=== PATIENT | female | born 1970 ===

== ENCOUNTER 2016-08-06 13:54 | Emergency (ER) | payer MEDICAID ==
[2016-08-06 13:55] VITALS: BMI 23.3
[2016-08-06 15:01] VITALS: PULSE 62; RESP 18; TEMP 98
[2016-08-06 15:02] VITALS: O2SAT 99
--- NOTE | 2016-08-06 15:02 | C.PDOC ---
History Of Present Illness 46 y/o female presents to the ED with complains of lightheadedness and elevated blood pressure today. Pt usually takes lisinopril daily, but states she ran out 2 weeks ago. Pt denies chest pain, SOB, visual changes, extremity weakness or numbness, slurred speech or any other complaints. Time Seen by Provider: 08/06/16 14:06 Chief Complaint (Nursing): Dizziness/Lightheaded History Per: Patient History/Exam Limitations: no limitations Onset/Duration Of Symptoms: Hrs Current Symptoms Are (Timing): Still Present Fall Associated With With Symptoms: No Severity: Mild Recent travel outside of the [place]: No Past Medical History Reviewed: Historical Data, Nursing Documentation, Vital Signs Vital Signs: Last Vital Signs Temp 98.0 F 08/06/16 15:01 Pulse 62 08/06/16 15:01 Resp 18 08/06/16 15:01 BP 148/88 08/06/16 15:01 Pulse Ox 99 08/06/16 15:02 - Medical History PMH: Anxiety, Bipolar Disorder, Depression, Fractures (hand and foot fx), HTN, Hypercholesterolemia - [facility] Procedures APPLICATION OF SPLINT (10/06/14) ESOPHAGOGASTRODUODENOSCOPY [EGD] W/CLOSED BIOPSY (10/09/14) GROUP PSYCHOTHERAPY (05/02/15) INDIVIDUAL PSYCHOTHERAPY, SUPPORTIVE (05/02/15) INJECT/INFUSE NEC (08/18/13) INTRODUCE REGIONAL ANESTH IN PERIPH NRV, PLEXI, PERC (06/27/15) OTHER CAST APPLICATION (02/14/14) REATTACHMENT OF LEFT SHOULDER TENDON, OPEN APPROACH (06/27/15) REMOV EXT IMMOBILIZATION (02/14/14) REPAIR LEFT KNEE JOINT, OPEN APPROACH (06/27/15) REPOSITION LEFT HUMERAL HEAD WITH INT FIX, OPEN APPROACH (06/27/15) REPOSITION LEFT TIBIA WITH INT FIX, OPEN APPROACH (06/27/15) SUPPLEMENT L SHOULDER TENDON WITH SYNTH SUB, OPEN APPROACH (06/27/15) TRANSFUSE NONAUT RED BLOOD CELLS IN PERIPH VEIN, PERC (06/27/15) Family History: States: Stroke, CAD, Hypertension - Social History Hx Tobacco Use: Yes (light smoker) Hx Alcohol Use: No Hx Substance Use: Yes - Immunization History Hx Tetanus Toxoid Vaccination: No Hx Influenza Vaccination: No Hx Pneumococcal Vaccination: Yes (2014) Review Of Systems Except As Marked, All Systems Reviewed And Found Negative. Constitutional: Negative for: Fever Eyes: Negative for: Vision Change Cardiovascular: Negative for: Chest Pain Respiratory: Negative for: Shortness of Breath Neurological: Positive for: Dizziness. Negative for: Weakness, Numbness, Change in Speech Physical Exam - Physical Exam Appears: Non-toxic, No Acute Distress Skin: Warm, Dry, No Rash Head: Atraumatic, Normacephalic Nose: Normal Neck: Normal ROM, Supple Chest: Symmetrical Cardiovascular: Rhythm Regular, No Murmur Respiratory: Normal Breath Sounds, No Rales, No Rhonchi, No Wheezing Gastrointestinal/Abdominal: Soft, No Tenderness Extremity: No Pedal Edema Extremity: Bilateral: Atraumatic Neurological/Psych: Oriented x3 ED Course And Treatment O2 Sat by Pulse Oximetry: 99 (on room air) Pulse Ox Interpretation: Normal Progress Note: Plan: lisinopril, BGL. Blood pressure improved, discharged with prescription of Lisinopril. Disposition Counseled Patient/Family Regarding: Studies Performed, Diagnosis, Need For Followup, Rx Given - Disposition Referrals: [facility] at [facility] [Outside] Disposition Time: 15:10 Additional Instructions: FOLLOW UP WITH YOUR DOCTOR IN 1-2 DAYS USE MEDICATION FOR HTN EVERY DAY RETURN TO EMERGENCY ROOM IF SYMPTOMS WORSEN Prescriptions: Lisinopril [Prinivil] 5 mg PO DAILY #30 tablet Instructions: Hypertension (ED) Print Language: ANGUILLAN - POA Present On Arrival: None - Clinical Impression Clinical Impression: Hypertension, Noncompliance with medication regimen - Scribe Statement The provider has reviewed the documentation as recorded by the Georgina Martinez Provider Attestation: All medical record entries made by the Georgina were at my direction and personally dictated by me. I have reviewed the chart and agree that the record accurately reflects my personal performance of the history, physical exam, medical decision making, and the department course for this patient. I have also personally directed, reviewed, and agree with the discharge instructions and disposition.
[2016-08-06 15:42] VITALS: BP 136/86
== END 2016-08-06 15:20 | disposition home or self-care (01) ==
LOC: C.ER 13:54
DX: I10 Essential (primary) hypertension (principal); Z91.14 Patient's other noncompliance with medication regimen

== ENCOUNTER 2016-08-07 13:33 | Emergency (ER) | payer MEDICAID ==
[2016-08-07 13:33] VITALS: BMI 23.3
[2016-08-07 17:45] VITALS: TEMP 98.3; O2SAT 99
[2016-08-07 18:47] VITALS: BP 156/88; PULSE 70; RESP 20
--- NOTE | 2016-08-07 19:51 | C.PDOC ---
History Of Present Illness A 46 year old female presents to the emergency room with complaints of headaches , dizziness, intermittent palpations, and blurry vision for a few days. Patient notes that her blood pressure happens to be elevated. Patient reports that her blood pressure machine measured her blood pressure as 159/107 with a heart rate of 93 today. Patient states that she was trying to watch television but kept having blurry vision. Patient was here in the emergency room yesterday and was prescribed Lisinopril. Patient has a history of anxiety and took her anxiety medications last night. Patient's physician is Dr. Parisa Hidalgo ([place]). Patient states that she has changed her blood pressure medications and is having trouble with her blood pressure. Patient notes a pain in the center of her chest that is reproducible with palpation. Patient also describes an electrical sensation radiating down her arm. Patient denies any shortness of breath, vomiting, abdominal pain, or any other complaints. Time Seen by Provider: 08/07/16 15:45 Chief Complaint (Nursing): High Blood Pressure History Per: Patient History/Exam Limitations: no limitations Onset/Duration Of Symptoms: Days Current Symptoms Are (Timing): Still Present Associated Symptoms: Chest Pain, Dizziness, Blurred Vision, Headache Severity: Moderate Exacerbating Factor(s): Pos: Recent Change In Medication (Change in blood pressure meds) Recent travel outside of the [place]: No Past Medical History Reviewed: Historical Data, Nursing Documentation, Vital Signs Vital Signs: Last Vital Signs Temp 98.3 F 08/07/16 17:44 Pulse 70 08/07/16 18:46 Resp 20 08/07/16 18:46 BP 156/88 H 08/07/16 18:46 Pulse Ox 99 08/07/16 19:56 - Medical History PMH: Anxiety, Bipolar Disorder, Depression, Fractures (hand and foot fx), HTN, Hypercholesterolemia Denies: Kidney Stones, Chronic Kidney Disease - [facility] Procedures APPLICATION OF SPLINT (10/06/14) ESOPHAGOGASTRODUODENOSCOPY [EGD] W/CLOSED BIOPSY (10/09/14) GROUP PSYCHOTHERAPY (05/02/15) INDIVIDUAL PSYCHOTHERAPY, SUPPORTIVE (05/02/15) INJECT/INFUSE NEC (08/18/13) INTRODUCE REGIONAL ANESTH IN PERIPH NRV, PLEXI, PERC (06/27/15) OTHER CAST APPLICATION (02/14/14) REATTACHMENT OF LEFT SHOULDER TENDON, OPEN APPROACH (06/27/15) REMOV EXT IMMOBILIZATION (02/14/14) REPAIR LEFT KNEE JOINT, OPEN APPROACH (06/27/15) REPOSITION LEFT HUMERAL HEAD WITH INT FIX, OPEN APPROACH (06/27/15) REPOSITION LEFT TIBIA WITH INT FIX, OPEN APPROACH (06/27/15) SUPPLEMENT L SHOULDER TENDON WITH SYNTH SUB, OPEN APPROACH (06/27/15) TRANSFUSE NONAUT RED BLOOD CELLS IN PERIPH VEIN, PERC (06/27/15) Family History: States: Stroke, CAD, Hypertension - Social History Hx Tobacco Use: Yes (light smoker) Hx Alcohol Use: No Hx Substance Use: Yes - Immunization History Hx Tetanus Toxoid Vaccination: No Hx Influenza Vaccination: No Hx Pneumococcal Vaccination: Yes (2013) Review Of Systems Except As Marked, All Systems Reviewed And Found Negative. Constitutional: Positive for: Other (Elevated blood pressure) Eyes: Positive for: Vision Change (Blurry vision) Cardiovascular: Positive for: Chest Pain, Palpitations Respiratory: Negative for: Shortness of Breath Gastrointestinal: Negative for: Vomiting, Abdominal Pain Neurological: Positive for: Headache, Dizziness Physical Exam - Physical Exam Appears: Non-toxic Skin: Normal Color, Warm, Dry Head: Atraumatic, Normacephalic Eye(s): bilateral: Normal Inspection Neck: Normal ROM, Supple Cardiovascular: Rhythm Regular Respiratory: Normal Breath Sounds, No Rales, No Rhonchi, No Wheezing Gastrointestinal/Abdominal: Soft, No Tenderness Extremity: Normal ROM, No Tenderness Neurological/Psych: Oriented x3, Normal Speech ED Course And Treatment ECG: Interpreted By Me ECG Rhythm: Sinus Rhythm Interpretation Of ECG: voltage for LVH Rate From EC O2 Sat by Pulse Oximetry: 99 Progress Note: Patient's blood pressure here in the ER was 148/88 and patient's heart rate was in the 60s. Medical Decision Making Medical Decision Making: BP remained normal in the Ed Pt advised to f/u with her PCP Disposition - Disposition Referrals: Parisa Hidalgo MD [Resident] - Disposition: HOME/ ROUTINE Disposition Time: 20:33 Condition: GOOD Instructions: Anxiety (ED) - Clinical Impression Clinical Impression: Anxiety - Scribe Statement The provider has reviewed the documentation as recorded by the Scribluba Randle All medical record entries made by the Scribe were at my direction and personally dictated by me. I have reviewed the chart and agree that the record accurately reflects my personal performance of the history, physical exam, medical decision making, and the department course for this patient. I have also personally directed, reviewed, and agree with the discharge instructions and disposition.
== END 2016-08-07 20:55 | disposition home or self-care (01) ==
LOC: C.ER 13:33
DX: F41.9 Anxiety disorder, unspecified (principal)

== ENCOUNTER 2016-08-20 12:08 | Observation (INO) | payer MEDICAID ==
[2016-08-20 12:08] VITALS: BMI 23.3
[2016-08-20] MEDS ORDERED: Sodium Chloride 0.9% 1,000 ML IV STA (12:57)
[2016-08-20] MEDS ORDERED: Aluminum Hydroxide/Magnesium Hydroxide Susp (30 mL) PO STA (12:58)
[2016-08-20] MEDS ORDERED: Sodium Chloride 0.9% 1,000 ML ONE (13:19)
[2016-08-20] MEDS ORDERED: Aluminum Hydroxide/Magnesium Hydroxide Susp (30 mL) ONE (13:19)
[2016-08-20 13:49] LABS: CHLORIDE 102 mmol/L (98-107); PARTIAL THROMBOPLASTIN TIME 30 SECONDS (21-34); POTASSIUM 3.8 mmol/L (3.6-5.2); SODIUM 140 mmol/L (132-148)
[2016-08-20 13:50] LABS: BASO # 0.1 K/uL (0.0-0.2); EOS # 0.1 K/uL (0.0-0.7); EOS % 1.7 % (0.0-4.0); HEMATOCRIT 39.7 % (34.0-47.0); LYMPH # 1.9 K/uL (1.0-4.3); LYMPH % 29.5 % (20.0-40.0); MEAN CELL VOLUME 82.6 fL (81.0-99.0); MEAN CORPUSCULAR HEMOGLOBIN 27.9 pg (27.0-31.0); MEAN CORPUSCULAR HGB CONC 33.8 g/dL (33.0-37.0); MEAN PLATELET VOLUME 10.5 fL (7.2-11.7); MONO # 0.3 K/uL (0.0-0.8); MONO % 4.9 % (0.0-10.0); RED CELL DISTRIBUTION WIDTH 15.1 % (11.5-14.5); WHITE BLOOD COUNT 6.6 K/uL (4.8-10.8)
[2016-08-20 13:52] LABS: ALB/GLOB RATIO 1.3 (1.0-2.1); ALKALINE PHOSPHATASE 71 U/L (38-126); ALT/SGPT 33 U/L (9-52); AST/SGOT 25 U/L (14-36); BILIRUBIN,TOTAL 0.9 mg/dL (0.2-1.3); BLOOD UREA NITROGEN 13 mg/dL (7-17); CARBON DIOXIDE 29 mmol/L (22-30); GFR AFRICAN-AMERICAN > 60; GLUCOSE,RANDOM 83 mg/dL (65-105); TOTAL PROTEIN 7.8 g/dL (6.3-8.3)
[2016-08-20 13:53] LABS: CALCIUM 9.2 mg/dl (8.6-10.4)
[2016-08-20 13:56] LABS: RBC URINE < 1 /hpf (0-3); URINE BILIRUBIN NEGATIVE (NEGATIVE); URINE BLOOD 2+ (NEGATIVE); URINE COLOR Straw (YELLOW); URINE GLUCOSE (UA) NORMAL (Normal); URINE KETONE NEGATIVE (NEGATIVE); URINE LEUKOCYTE ESTERASE NEG Leu/uL (Negative); URINE PROTEIN NEGATIVE (NEGATIVE); URINE UROBILINOGEN NORMAL mg/dL (0.2-1.0)
--- NOTE | 2016-08-20 15:36 | C.PDOC ---
History Of Present Illness 46 y/o female presents to the emergency department complaining of burning sensation in her chest and SOB, pain worse with swallowing. She reports that she has been smoking a lot of cigarettes and a lot of marijuana for the last several days. Patient denies any other drug abuse, shortness of breath, fever, or other complaints. Time Seen by Provider: 08/20/16 12:39 Chief Complaint (Nursing): Chest Pain History Per: Patient History/Exam Limitations: no limitations Onset/Duration Of Symptoms: Days, Gradual, Persistent Current Symptoms Are (Timing): Still Present Quality: Burning Recent travel outside of the [place]: No Past Medical History Reviewed: Historical Data, Nursing Documentation, Vital Signs Vital Signs: Last Vital Signs Temp 98.0 F 08/20/16 15:04 Pulse 62 08/20/16 16:45 Resp 18 08/20/16 16:45 BP 129/76 08/20/16 16:45 Pulse Ox 98 08/20/16 17:32 - Medical History PMH: Anxiety, Bipolar Disorder, Depression, Fractures (hand and foot fx), HTN, Hypercholesterolemia Surgical History: No Surg Hx - [facility] Procedures APPLICATION OF SPLINT (10/06/14) ESOPHAGOGASTRODUODENOSCOPY [EGD] W/CLOSED BIOPSY (10/09/14) GROUP PSYCHOTHERAPY (05/02/15) INDIVIDUAL PSYCHOTHERAPY, SUPPORTIVE (05/02/15) INJECT/INFUSE NEC (08/18/13) INTRODUCE REGIONAL ANESTH IN PERIPH NRV, PLEXI, PERC (06/27/15) OTHER CAST APPLICATION (02/14/14) REATTACHMENT OF LEFT SHOULDER TENDON, OPEN APPROACH (06/27/15) REMOV EXT IMMOBILIZATION (02/14/14) REPAIR LEFT KNEE JOINT, OPEN APPROACH (06/27/15) REPOSITION LEFT HUMERAL HEAD WITH INT FIX, OPEN APPROACH (06/27/15) REPOSITION LEFT TIBIA WITH INT FIX, OPEN APPROACH (06/27/15) SUPPLEMENT L SHOULDER TENDON WITH SYNTH SUB, OPEN APPROACH (06/27/15) TRANSFUSE NONAUT RED BLOOD CELLS IN PERIPH VEIN, PERC (06/27/15) Family History: States: Stroke, CAD, Hypertension - Social History Hx Tobacco Use: Yes (light smoker) Hx Alcohol Use: No Hx Substance Use: Yes (marijuana) - Immunization History Hx Tetanus Toxoid Vaccination: No Hx Influenza Vaccination: No Hx Pneumococcal Vaccination: Yes (2013) Review Of Systems Except As Marked, All Systems Reviewed And Found Negative. Constitutional: Negative for: Fever Respiratory: Positive for: Other ("burning" in chest with swallowing). Negative for: Shortness of Breath Physical Exam - Physical Exam Appears: Non-toxic, No Acute Distress, Other (marijuana odor) Skin: Normal Color, Warm, Dry Head: Atraumatic, Normacephalic Eye(s): bilateral: Normal Inspection, PERRL Neck: Normal, Normal ROM Chest: Symmetrical, No Tenderness Cardiovascular: Rhythm Regular Respiratory: Normal Breath Sounds, No Decreased Breath Sounds, No Rales, No Rhonchi, No Wheezing Gastrointestinal/Abdominal: Normal Exam, Soft, No Tenderness Back: Normal Inspection Extremity: Normal ROM, No Swelling Neurological/Psych: Oriented x3, Normal Speech, Normal Cognition ED Course And Treatment - Laboratory Results Result Diagrams: 08/20/16 13:37 08/20/16 13:37 ECG Rhythm: Sinus Rhythm Interpretation Of ECG: LVH, short MO Rate From EC O2 Sat by Pulse Oximetry: 98 (ra) Pulse Ox Interpretation: Normal - Other Rad Chest X-Ray X-Ray: Viewed By Me, Read By Radiologist Interpretation: Accession No. : [id number]. Patient Name / ID : IAN SHAFFER I / [id number]. Exam Date : 08/20/2016 15:26:16 ( Approved ). Study Comment : Sex / Age : F / 46Y. Creator : TAMIR DUFFY MD. Dictator : TAMIR DUFFY MD. Compliance Advisor : Apprentice Machinist Outside : TAMIR DUFFY MD. Approver2 : Report Date : 08/20/2016 17:26:22. My Comment : . HISTORY: pain in the throat after smoking weed. COMPARISON: 07/30/2016. TECHNIQUE: Chest PA and lateral. FINDINGS: LUNGS: The lungs are hyperinflated and there is peribronchial thickening with chronic changes in both lungs. There is no focal consolidation. PLEURA: No significant pleural effusion identified. No pneumothorax apparent. CARDIOVASCULAR: Normal. OSSEOUS STRUCTURES: No significant abnormalities. VISUALIZED UPPER ABDOMEN: Normal. OTHER FINDINGS: None. IMPRESSION: Findings are most compatible with reactive small airway disease/viral/atypical pneumonitis. No lobar pneumonia. Progress Note: EKG, CXR, Blood Work, Urinalysis, and Urine HCG were ordered. Patient treated with Maalox PO, Pepcid IVP, and IV Fluids. Patient accepted to telemetry observation under the care of Dr. Judy Londono. Disposition - Disposition Disposition: HOSPITALIZED Disposition Time: 16:07 Condition: FAIR - Clinical Impression Clinical Impression: Cannabis abuse, Chest pain - PA / AUTOCAD DETAILER / Resident Statement MD/DO has reviewed & agrees with the documentation as recorded. - Scribe Statement The provider has reviewed the documentation as recorded by the Scribe (Misty Dao) All medical record entries made by the Scribe were at my direction and personally dictated by me. I have reviewed the chart and agree that the record accurately reflects my personal performance of the history, physical exam, medical decision making, and the department course for this patient. I have also personally directed, reviewed, and agree with the discharge instructions and disposition. Decision To Admit - Pt Status Changed To: Hospital Disposition Of: Observation - . Bed Request Type: Telemetry Admitting Physician: Judy Londono Patient Diagnosis: Cannabis abuse, Chest pain
--- NOTE | 2016-08-20 17:27 | RAD ---
HISTORY: pain in the throat after smoking weed COMPARISON: 07/30/2016 TECHNIQUE: Chest PA and lateral FINDINGS: LUNGS: The lungs are hyperinflated and there is peribronchial thickening with chronic changes in both lungs. There is no focal consolidation. PLEURA: No significant pleural effusion identified. No pneumothorax apparent. CARDIOVASCULAR: Normal. OSSEOUS STRUCTURES: No significant abnormalities. VISUALIZED UPPER ABDOMEN: Normal. OTHER FINDINGS: None. IMPRESSION: Findings are most compatible with reactive small airway disease/viral/atypical pneumonitis. No lobar pneumonia.
--- NOTE | 2016-08-21 12:37 | CP.PCM.CON ---
History of Present Illness - History of Present Illness History of Present Illness: Middle aged female who was not feeling well after smoking and Marijuana use for some days. Now denies any complaints and promising to stop smoking and Marijuana. from Past Patient History - Infectious Disease Hx of Infectious Diseases: None - Past Medical History & Family History Past Medical History?: Yes - Past Social History Smoking Status: Heavy Smoker > 10 Cigarettes Daily - CARDIAC Hx Hypercholesterolemia: Yes Hx Hypertension: Yes - PULMONARY Hx Respiratory Disorders: (smoker) Other/Comment: SMOKER - NEUROLOGICAL Hx Neurological Disorder: No - HEENT Hx HEENT Problems: No - RENAL Hx Chronic Kidney Disease: No - ENDOCRINE/METABOLIC Hx Endocrine Disorders: No - HEMATOLOGICAL/ONCOLOGICAL Hx Blood Disorders: No - INTEGUMENTARY Hx Dermatological Problems: No - MUSCULOSKELETAL/RHEUMATOLOGICAL Hx Musculoskeletal Disorders: No Hx Falls: No - GASTROINTESTINAL Hx Gastrointestinal Disorders: Yes Hx Diarrhea: Yes - GENITOURINARY/GYNECOLOGICAL Hx Genitourinary Disorders: No - PSYCHIATRIC Hx Anxiety: Yes Hx Bipolar Disorder: Yes Hx Depression: Yes Hx Substance Use: Yes (marijuana) - SURGICAL HISTORY Hx Surgeries: Yes Hx Orthopedic Surgery: Yes - ANESTHESIA Hx Anesthesia: Yes Hx Anesthesia Reactions: No Hx Malignant Hyperthermia: No Meds Allergies/Adverse Reactions: Allergies Allergy/AdvReac Type Severity Reaction Status Date / Time No Known Allergies Allergy Verified 08/07/16 14:29 - Medications Medications: Current Medications Aripiprazole (Abilify) 10 mg PO HS [facility] Last Admin: 08/20/16 23:13 Dose: 10 mg Aspirin (Aspirin Chewable) 81 mg PO DAILY [facility] Last Admin: 08/21/16 10:11 Dose: 81 mg Famotidine (Pepcid) 40 mg PO DAILY [facility] Last Admin: 08/21/16 10:11 Dose: 40 mg Heparin Sodium (Porcine) (Heparin) 5,000 units SC Q12 [facility] Last Admin: 08/21/16 10:11 Dose: 5,000 units Lisinopril (Zestril) 10 mg PO DAILY [facility] Last Admin: 08/21/16 10:10 Dose: 10 mg Paroxetine HCl (Paxil) 10 mg PO DAILY [facility] Last Admin: 08/21/16 10:11 Dose: 10 mg Trazodone HCl (Desyrel) 100 mg PO [facility] Last Admin: 08/20/16 23:12 Dose: 100 mg Trazodone HCl (Desyrel) 50 mg PO [facility] Last Admin: 08/20/16 23:12 Dose: 50 mg Physical Exam - Head Exam Head Exam: NORMOCEPHALIC - Neck Exam Neck exam: Positive for: Normal Inspection - Respiratory Exam Respiratory Exam: NORMAL BREATHING PATTERN - Cardiovascular Exam Cardiovascular Exam: REGULAR RHYTHM - Extremities Exam Extremities exam: Positive for: normal inspection - Neurological Exam Neurological exam: Oriented x3 Results - Vital Signs Recent Vital Signs: Last Vital Signs Temp 98.2 F 08/21/16 07:35 Pulse 64 08/21/16 08:00 Resp 17 08/21/16 07:35 BP 144/84 08/21/16 07:35 Pulse Ox 97 08/21/16 07:35 - Labs Result Diagrams: 08/20/16 13:37 08/20/16 13:37 Labs: Laboratory Results - last 24 hr 08/20/16 08/21/16 21:49 05:58 Total Creatine Kinase 54 47 CK-MB (Mass) 0.56 0.37 Troponin I, Quant < 0.0120 < 0.0120 Assessment & Plan (1) Chest pain Assessment and Plan: Young female with atypical chest pain who has been smoking and using Cannabis. Her work-up is negative and EKG is without any significant abnormalities. Given her age and and low risk profile she may be discharged and further cardiac work- up can be done as out patient. Status: Acute
--- NOTE | 2016-08-21 14:49 | CP.PCM.PN ---
Subjective - Date & Time of Evaluation Date of Evaluation: 08/21/16 Time of Evaluation: 14:41 - Subjective Subjective: House doctor note - PGY-1 I was called to evaluate pt for chest pain. She was admitted with chest pain and sob. Cardiac work up has been negative so far. Pt reports left sided chest pain to me that she is not able to describe well. She states that it started a few minutes ago. Pt was observed to be on the phone, speaking in full sentences , in NAD. Denied any diaphoresis, nausea, vomiting. Vitals were stable with BP ~ 160/90 and HR ~70. Pt saturating well. A repeat EKG, NARENDRA's and cxr were ordered. EKG showed NSR with no st elevations or depressions, no significant change from prior EKGs. Nursing staff to update PCP. Objective - Vital Signs/Intake and Output Vital Signs (last 24 hours): Temp Pulse Resp BP Pulse Ox 98.2 F 75 17 180/109 H 97 08/21/16 07:35 08/21/16 13:29 08/21/16 07:35 08/21/16 13:29 08/21/16 07:35 Intake and Output: 08/21/16 08/21/16 06:59 18:59 Intake Total 240 Balance 240 - Medications Medications: Current Medications Amlodipine Besylate (Norvasc) 10 mg PO DAILY [facility] Aripiprazole (Abilify) 10 mg PO HS [facility] Last Admin: 08/20/16 23:13 Dose: 10 mg Aspirin (Aspirin Chewable) 81 mg PO DAILY [facility] Last Admin: 08/21/16 10:11 Dose: 81 mg Famotidine (Pepcid) 40 mg PO DAILY [facility] Last Admin: 08/21/16 10:11 Dose: 40 mg Heparin Sodium (Porcine) (Heparin) 5,000 units SC Q12 [facility] Last Admin: 08/21/16 10:11 Dose: 5,000 units Lisinopril (Zestril) 10 mg PO DAILY [facility] Last Admin: 08/21/16 10:10 Dose: 10 mg Paroxetine HCl (Paxil) 10 mg PO DAILY [facility] Last Admin: 08/21/16 10:11 Dose: 10 mg Trazodone HCl (Desyrel) 100 mg PO HS [facility] Last Admin: 08/20/16 23:12 Dose: 100 mg Trazodone HCl (Desyrel) 50 mg PO HS [facility] Last Admin: 08/20/16 23:12 Dose: 50 mg - Labs Labs: PT 11.7 SECONDS (9.7-12.2) 08/20/16 13:37 INR 1.0 08/20/16 13:37 APTT 30 SECONDS (21-34) 08/20/16 13:37 - Constitutional Appears: Non-toxic, No Acute Distress - Head Exam Head Exam: ATRAUMATIC, NORMOCEPHALIC - ENT Exam ENT Exam: Mucous Membranes Moist - Respiratory Exam Respiratory Exam: Clear to Ausculation Bilateral, NORMAL BREATHING PATTERN - Cardiovascular Exam Cardiovascular Exam: +S1, +S2 - GI/Abdominal Exam GI & Abdominal Exam: Soft, Normal Bowel Sounds - Neurological Exam Neurological Exam: Alert, Awake - Skin Skin Exam: Dry, Warm
--- NOTE | 2016-08-21 15:01 | RAD ---
PROCEDURE: CHEST RADIOGRAPH, 1 VIEW HISTORY: chest pain COMPARISON: 08/20/2016 FINDINGS: LUNGS: The lungs are clear. There is no focal consolidation. PLEURA: No pneumothorax or pleural fluid seen. CARDIOVASCULAR: Normal. OSSEOUS STRUCTURES: No significant abnormalities. VISUALIZED UPPER ABDOMEN: Normal. OTHER FINDINGS: None. IMPRESSION: No active pulmonary disease.
[2016-08-21 17:09] VITALS: RESP 20
--- NOTE | 2016-08-22 06:30 | CARD ---
APPROVED REPORT EKG Measurement Heart [id number] <Conclusion> Sinus rhythm with short NH Moderate voltage criteria for LVH, may be normal variant Borderline ECG
--- NOTE | 2016-08-22 07:48 | HP ---
CHIEF COMPLAINT: Chest pain, shortness of breath. HISTORY OF PRESENT ILLNESS: The patient is a 46-year-old female came into the Emergency Room Department complaining of burning sensation in her chest, shortness of breath. The pain worsens with swallowing. She reports that she has been smoking a lot of cigarettes and a lot of marijuana for the last several days. The patient denies any drug abuse. No fever, no chills and pain persists, still present at the time of admission. PAST MEDICAL HISTORY: Anxiety, bipolar, depression, fracture of hand and foot, hypertension, hypercholesterolemia, history of EGD with biopsy. FAMILY HISTORY: Stroke, coronary artery disease, hypertension. SOCIAL HISTORY: Tobacco abuse yes, alcohol abuse no. As per patient, substance abuse yes, marijuana. REVIEW OF SYSTEMS: The patient is seen and examined on the bedside in the room. Still complaining about burning sensation. No nausea, vomiting, or diarrhea. No fever, no chills. No hematuria or hematochezia. No shortness of breath. PHYSICAL EXAMINATION: VITAL SIGNS: Temperature 98.2, pulse 75, respiratory rate 18, blood pressure 112/75. HEENT: Head normocephalic, atraumatic. Eyes: PERRLA. Extraocular muscles intact. Conjunctivae clear. Nose patent. NECK: Supple. No carotid bruit, JVD or thyromegaly. CHEST: Bilaterally symmetrical. HEART: S1, S2 positive. LUNGS: Clear to auscultation. ABDOMEN: Soft. Bowel sounds present. No organomegaly. EXTREMITIES: No edema, no cyanosis. NEUROLOGIC: The patient is awake, alert, moving all 4 extremities. No focal deficits. LABORATORY DATA: White blood cells 6.6, hemoglobin 13.4, hematocrit 37.7, and platelets 180. Sodium 140, potassium 3.8, BUN 13, creatinine 0.7. Troponin less than 0.0120 x 3. Urine has blood. Tox screen negative. ASSESSMENT AND PLAN: The patient is a 46-year-old lady came with chest pain. Troponin is negative, has hematuria. Echocardiogram done. Chest x-ray done, seen by Dr. Pat Rasmussen, furniture cleaner. History of marijuana abuse, looks like atypical chest pain as per Dr. Rasmussen. Workup is negative. EKG is without any significant abnormalities. Given her age and low risk profile, she may be discharged and further cardiac workup can be done as outpatient. She is not my private patient. I admitted her when I was personnel officer. Something for rapid heart and these palpitations. The patient is seen Dr. Ladarius Wise. Today, the patient has again chest pain and house doctor, PGY-1, was called. He saw the patient according to that. The patient has chest pain, started a few minutes ago. The patient was observed to be on the phone, speaking in full sentences in no acute distress. Denies any diaphoresis, nausea, vomiting. Vitals are stable. Repeat EKG, and chest x-ray were ordered. No significant change from EKG, We will continue present treatment. Gastrointestinal and deep venous thrombosis prophylaxis. Repeat labs. We will follow up. Judy Londono MD cc: [id number] TT: 08/22/2016 07:48:20 dylon VALLE
[2016-08-22 08:32] LABS: HEMATOCRIT 38.1 % (34.0-47.0); MEAN CELL VOLUME 83.7 fL (81.0-99.0); MEAN CORPUSCULAR HEMOGLOBIN 28.1 pg (27.0-31.0); MEAN CORPUSCULAR HGB CONC 33.6 g/dL (33.0-37.0); MEAN PLATELET VOLUME 10.9 fL (7.2-11.7); RED CELL DISTRIBUTION WIDTH 15.5 % (11.5-14.5)
[2016-08-22 08:41] VITALS: BP 114/74; PULSE 72; TEMP 98.2; O2SAT 98
[2016-08-22 08:47] LABS: CHLORIDE 99 mmol/L (98-107); SODIUM 139 mmol/L (132-148)
[2016-08-22 08:48] LABS: POTASSIUM 3.9 mmol/L (3.6-5.2)
[2016-08-22 08:49] LABS: IRON 133 ug/dL (37-170)
[2016-08-22 08:50] LABS: CHOLESTEROL 165 mg/dL (0-199); GFR AFRICAN-AMERICAN > 60
[2016-08-22 08:51] LABS: BLOOD UREA NITROGEN 12 mg/dL (7-17); CARBON DIOXIDE 28 mmol/L (22-30); GLUCOSE,RANDOM 91 mg/dL (65-105)
[2016-08-22 09:54] LABS: THYROID STIMULATING HORMONE 1.61 mIU/L (0.46-4.68)
[2016-08-22 10:02] LABS: FOLATE 7.4 ng/mL
--- NOTE | 2016-08-23 14:56 | DS ---
CHIEF COMPLAINT: Chest pain, shortness of breath. HISTORY OF PRESENT ILLNESS: The patient is a 46-year-old lady, new for me, came to the Emergency Room Department complaining about chest pain, shortness of breath. The patient was admitted. Cardiology consult called with Dr. Rasmussen. He saw the patient, cleared for discharge. The patient does not have pain and she was feeling better, pain free and advised to do workup as outpatient, follow up with primary care physician and sew out operator as outpatient and follow up for echocardiography and a stress test, and in case pain will come back, come to the hospital or call 911. PAST MEDICAL HISTORY: Anxiety, bipolar, depression, fracture of the hand and foot, hypertension, hypercholesterolemia, history of EGD with biopsy. FAMILY HISTORY: Stroke, coronary artery disease, hypertension. SOCIAL HISTORY: Tobacco abuse yes. Alcohol abuse no. As per patient, substance abuse yes, marijuana. The patient urged to quit marijuana, education done. REVIEW OF SYSTEMS: The patient seen and examined on the bedside, looks comfortable. No more chest pain. No shortness of breath. No nausea, vomiting , diarrhea. Feeling better, wants to go home. PHYSICAL EXAMINATION: VITAL SIGNS: Temperature 98.2, pulse 58, blood pressure 114/74, respiratory rate 20. HEENT: Head normocephalic, atraumatic. Eyes, PERRLA. Extraocular muscles intact. Conjunctivae pink. Eyelids unremarkable. Nose patent. Mucous membranes moist. NECK: Supple. No carotid bruit, no JVD, no thyromegaly. CHEST: Bilaterally symmetrical. HEART: S1, S2 positive. LUNGS: Clear to auscultation. ABDOMEN: Soft. Bowel sounds positive. No organomegaly. EXTREMITIES: No edema, no cyanosis. NEUROLOGIC: The patient is awake, alert, moving all 4 extremities. No focal deficits. MEDICATIONS: Was given in the hospital Abilify, aspirin, heparin for DVT prophylaxis, Norvasc, Paxil, Pepcid for GI prophylaxis, Zestril, Zofran. LABORATORIES: White blood cells 6.0, hemoglobin 12.8, hematocrit 38.1, platelets noted Sodium 139, potassium 3.9, BUN 12, creatinine 0.7, glucose noted iron 133. Troponin less than 0.0120 four times. ASSESSMENT AND PLAN: The patient is a 46-year-old lady, came with chest pain, seen by the sew out operator, Dr. Rasmussen. According to sew out operator, patient has atypical chest pain, who has been smoking and using cannabinoids, cannabis. Her workup is negative and EKG is without any significant abnormalities given her age and her profile. She may be discharged and further cardiac workup can be done as outpatient. Appreciated Dr. Rasmussen's input. Discussion done with the patient. She wants to go home and she was pain free. History of anxiety, bipolar, depression, fracture of hand and foot, hypertension, hypercholesterolemia, history of esophagogastroduodenoscopy with biopsy. The patient educated that if pain will come back, go to the nearest hospital, call 911. Otherwise, follow up with her own primary care physician and sew out operator. Judy Londono MD cc: [id number] TT: 08/23/2016 14:55:32 en MTDD
--- NOTE | 2016-08-24 15:29 | CARD ---
APPROVED REPORT EKG Measurement Heart [id number] <Conclusion> Normal sinus rhythm Minimal voltage criteria for LVH, may be normal variant Borderline ECG
== END 2016-08-22 12:30 | disposition home or self-care (01) ==
LOC: C.ER 12:08 → C.9E 17:15 → C.6T 18:28
PROVIDERS: ADMIT Internal Medicine; ATTEND Internal Medicine
DX: R07.9 Chest pain, unspecified (principal); F12.10 Cannabis abuse, uncomplicated; R06.02 Shortness of breath; F32.9 Major depressive disorder, single episode, unspecified; I10 Essential (primary) hypertension; E78.00 Pure hypercholesterolemia, unspecified
CPT/HCPCS: 36415; 71010; 71020; 80048; 80053; 80061; 80324; 80345; 80346; 80349; 80353; 80358; 80361; 81001; 82550; 82553; 82607; 82746; 83036; 83540; 83550; 83992; 84443; 84484; 84703; 85025; 85027; 85378; 85610; 85730; 93005; 96361; 96372; 96374; 96375; 96376; 99285; G0378; J1644; J2405; J7040

== ENCOUNTER 2016-08-27 11:40 | Emergency (ER) | payer MEDICAID ==
[2016-08-27 11:49] VITALS: BMI 21.4
--- NOTE | 2016-08-27 12:11 | C.PDOC ---
History Of Present Illness Pt is a 46 yr old female with PMHx of HTN and anxiety, presents to the ER with complaints of high blood pressure of 189/104 at home. Patient is compliant with medications. Patient denies fever, chills, chest pain, SOB, nausea, vomiting, abdominal pain, diarrhea, weakness or numbness. Pt with no chest pain, no blurred vision and no SOB. Time Seen by Provider: 08/27/16 12:01 Chief Complaint (Nursing): Dizziness/Lightheaded History Per: Patient History/Exam Limitations: no limitations Onset/Duration Of Symptoms: Days (1) Current Symptoms Are (Timing): Still Present Past Medical History Reviewed: Historical Data, Nursing Documentation, Vital Signs Vital Signs: Last Vital Signs Temp 98 F 08/27/16 12:16 Pulse 66 08/27/16 12:16 Resp 20 08/27/16 12:16 BP 157/91 H 08/27/16 12:16 Pulse Ox 97 08/27/16 12:23 - Medical History PMH: Anxiety, Bipolar Disorder, Depression, Fractures (hand and foot fx), HTN, Hypercholesterolemia - [facility] Procedures APPLICATION OF SPLINT (10/06/14) ESOPHAGOGASTRODUODENOSCOPY [EGD] W/CLOSED BIOPSY (10/09/14) GROUP PSYCHOTHERAPY (05/02/15) INDIVIDUAL PSYCHOTHERAPY, SUPPORTIVE (05/02/15) INJECT/INFUSE NEC (08/18/13) INTRODUCE REGIONAL ANESTH IN PERIPH NRV, PLEXI, PERC (06/27/15) OTHER CAST APPLICATION (02/14/14) REATTACHMENT OF LEFT SHOULDER TENDON, OPEN APPROACH (06/27/15) REMOV EXT IMMOBILIZATION (02/14/14) REPAIR LEFT KNEE JOINT, OPEN APPROACH (06/27/15) REPOSITION LEFT HUMERAL HEAD WITH INT FIX, OPEN APPROACH (06/27/15) REPOSITION LEFT TIBIA WITH INT FIX, OPEN APPROACH (06/27/15) SUPPLEMENT L SHOULDER TENDON WITH SYNTH SUB, OPEN APPROACH (06/27/15) TRANSFUSE NONAUT RED BLOOD CELLS IN PERIPH VEIN, PERC (06/27/15) Family History: States: Stroke, CAD, Hypertension - Social History Hx Tobacco Use: Yes (light smoker) Hx Alcohol Use: No Hx Substance Use: Yes (marijuana) - Immunization History Hx Tetanus Toxoid Vaccination: No Hx Influenza Vaccination: Yes (04/2016) Hx Pneumococcal Vaccination: Yes (2013) Review Of Systems Except As Marked, All Systems Reviewed And Found Negative. Constitutional: Negative for: Fever, Chills Cardiovascular: Negative for: Chest Pain Respiratory: Negative for: Shortness of Breath Gastrointestinal: Negative for: Nausea, Vomiting, Abdominal Pain, Diarrhea Neurological: Negative for: Weakness, Numbness, Headache Physical Exam - Physical Exam Appears: Well, Non-toxic, No Acute Distress Skin: Warm, Dry, No Rash, Other (Scar on the left shoulder ) Head: Atraumatic, Normacephalic Eye(s): bilateral: Normal Inspection, EOMI Ear(s): Bilateral: Normal Nose: Normal Oral Mucosa: Moist Tongue: Normal Appearing Lips: Normal Appearing Gingiva: Normal Appearing Throat: Normal Neck: Normal, Normal ROM, Supple Chest: Symmetrical, No Tenderness Cardiovascular: Rhythm Regular, No Murmur Respiratory: Normal Breath Sounds, No Rales, No Rhonchi, No Stridor, No Wheezing Gastrointestinal/Abdominal: Normal Exam, Bowel Sounds, Soft, No Tenderness Back: Normal Inspection Extremity: Normal ROM, No Swelling Extremity: Bilateral: Atraumatic, Normal ROM Pulses: Left Radial: Normal, Right Radial: Normal Neurological/Psych: Oriented x3, Normal Speech, Normal Motor Gait: Steady ED Course And Treatment O2 Sat by Pulse Oximetry: 97 Medical Decision Making Medical Decision Making: Initial Imp: Hypertension Initial Plan: Will repeat BP 12:19 PM--Repeat BP 157/91. Pt feels better. Will d/c home. Pt requests to follow up here in [place] instead of [place]. Disposition Counseled Patient/Family Regarding: Diagnosis, Need For Followup - Disposition Referrals: [facility] [Outside] Disposition: HOME/ ROUTINE Disposition Time: 12:20 Condition: IMPROVED Additional Instructions: Leyva, thank you for letting us take care of you today. Return to the ER if your symptoms worsen, or if any problems. Take your current Blood Pressure medication as you normally do. Call the phone number below to make an appointment at our [facility]. Instructions: Hypertension (ED) Forms: Gen Discharge Inst Setswana Print Language: PERSIAN - POA Present On Arrival: None - Clinical Impression Clinical Impression: Hypertension - Scribe Statement The provider has reviewed the documentation as recorded by the Liuibluba Felton Provider Attestation: All medical record entries made by the Scribe were at my direction and personally dictated by me. I have reviewed the chart and agree that the record accurately reflects my personal performance of the history, physical exam, medical decision making, and the department course for this patient. I have also personally directed, reviewed, and agree with the discharge instructions and disposition.
[2016-08-27 12:17] VITALS: BP 157/91; PULSE 66; RESP 20; TEMP 98
[2016-08-27 12:22] VITALS: O2SAT 97
== END 2016-08-27 12:26 | disposition home or self-care (01) ==
LOC: C.ER 11:40
DX: I10 Essential (primary) hypertension (principal)

== ENCOUNTER 2016-09-22 12:35 | Emergency (ER) | payer MEDICAID ==
[2016-09-22 12:36] VITALS: BMI 20.3
[2016-09-22 12:50] VITALS: BP 163/100; RESP 20; TEMP 98.4; O2SAT 100
--- NOTE | 2016-09-22 13:51 | C.PDOC ---
History Of Present Illness 46 y/o female presents to the ED with complains of nasal congestion x2 days, consistent with seasonal allergies. Has not taken any medications at home. Pt smokes 1/2 ppd, lives in rooming house, niece at bedside watches over her. Denies fever, chills, cough, SOB or any other complaints. Time Seen by Provider: 09/22/16 13:16 Chief Complaint (Nursing): Chest Pain History Per: Patient History/Exam Limitations: no limitations Onset/Duration Of Symptoms: Days Current Symptoms Are (Timing): Still Present Severity: Mild Recent travel outside of the [place]: No Past Medical History Reviewed: Historical Data, Nursing Documentation, Vital Signs Vital Signs: Last Vital Signs Temp 98.4 F 09/22/16 12:46 Pulse 72 09/22/16 13:57 Resp 20 09/22/16 13:57 BP 163/100 H 09/22/16 12:46 Pulse Ox 100 09/22/16 14:52 - Medical History PMH: Anxiety, Bipolar Disorder, Depression, Fractures (hand and foot fx), HTN, Hypercholesterolemia - [facility] Procedures APPLICATION OF SPLINT (10/06/14) ESOPHAGOGASTRODUODENOSCOPY [EGD] W/CLOSED BIOPSY (10/09/14) GROUP PSYCHOTHERAPY (05/02/15) INDIVIDUAL PSYCHOTHERAPY, SUPPORTIVE (05/02/15) INJECT/INFUSE NEC (08/18/13) INTRODUCE REGIONAL ANESTH IN PERIPH NRV, PLEXI, PERC (06/27/15) OTHER CAST APPLICATION (02/14/14) REATTACHMENT OF LEFT SHOULDER TENDON, OPEN APPROACH (06/27/15) REMOV EXT IMMOBILIZATION (02/14/14) REPAIR LEFT KNEE JOINT, OPEN APPROACH (06/27/15) REPOSITION LEFT HUMERAL HEAD WITH INT FIX, OPEN APPROACH (06/27/15) REPOSITION LEFT TIBIA WITH INT FIX, OPEN APPROACH (06/27/15) SUPPLEMENT L SHOULDER TENDON WITH SYNTH SUB, OPEN APPROACH (06/27/15) TRANSFUSE NONAUT RED BLOOD CELLS IN PERIPH VEIN, PERC (06/27/15) Family History: States: Stroke, CAD, Hypertension - Social History Hx Tobacco Use: Yes (light smoker) Hx Alcohol Use: No Hx Substance Use: Yes - Immunization History Hx Tetanus Toxoid Vaccination: No Hx Influenza Vaccination: Yes (04/2016) Hx Pneumococcal Vaccination: Yes (2013) Review Of Systems Except As Marked, All Systems Reviewed And Found Negative. Constitutional: Negative for: Fever, Chills ENT: Positive for: Nose Congestion Respiratory: Negative for: Cough, Shortness of Breath Physical Exam - Physical Exam Appears: Non-toxic, No Acute Distress Skin: Warm, Dry, No Rash Head: Atraumatic, Normacephalic Ear(s): Bilateral: Normal Nose: Normal Oral Mucosa: Moist Throat: Normal, No Erythema Neck: Normal ROM, Supple Chest: Symmetrical Cardiovascular: Rhythm Regular, No Murmur Respiratory: Normal Breath Sounds, No Rales, No Rhonchi, No Wheezing Extremity: Bilateral: Atraumatic Neurological/Psych: Oriented x3, Normal Speech, Other (Bizarre, pleasant) ED Course And Treatment O2 Sat by Pulse Oximetry: 100 (room air) Pulse Ox Interpretation: Normal Medical Decision Making Medical Decision Making: Pt with multiple past visits to ED with vague symptomology and extensive workups --> normal. Multiple CTs performed: CT vascular: 03/30/11 CT lower ext: 06/28/15 CT upper ext: 06/28/15 CT head: 07/22/11, 08/14/11, 10/02/11, 05/09/13, 03/09/13, 11/15/14, 08/10/16, 08/07, CT abd/pelvis: 08/15/11, 09/23/14 CTA chest: 12/10/10, 08/14/11, 12/27/12, 01/06/13, 02/2013, 09/2013, 02/2014, 07/11/14 , 09/2014, 05/20/15, 04/17/15, NORMAL EXAM SINUS CONGESTION c/w seasonal allergies, worse with cigarette smoking Schizophrenia-baseline, good living accommodations, niece @ bedside. ok to f/u as opt. Disposition Doctor Will See Patient In The: Office Counseled Patient/Family Regarding: Studies Performed, Diagnosis - Disposition Referrals: [facility] [Outside] [facility] [Outside] Disposition: HOME/ ROUTINE Disposition Time: 13:50 Condition: GOOD Additional Instructions: Seasonal allergies: buy Lanny-D or other equivalent seasonal allergy medicines good for nasal congestion Schizophrenia Continue your normal meds and living accomodations Follow-up in our outpatient psych Clinic [facility] (in front of [facility]) or with your psychiatrist. Instructions: Allergic Rhinitis (ED) - Clinical Impression Clinical Impression: Nasal congestion, Schizophrenia - Scribe Statement The provider has reviewed the documentation as recorded by the Scribe Shay Martinez Provider Attestation: All medical record entries made by the Liuibe were at my direction and personally dictated by me. I have reviewed the chart and agree that the record accurately reflects my personal performance of the history, physical exam, medical decision making, and the department course for this patient. I have also personally directed, reviewed, and agree with the discharge instructions and disposition.
[2016-09-22 13:58] VITALS: PULSE 72
== END 2016-09-22 13:57 | disposition home or self-care (01) ==
LOC: C.ER 12:35
DX: R09.81 Nasal congestion (principal); F20.9 Schizophrenia, unspecified; Z72.0 Tobacco use

== ENCOUNTER 2016-11-01 17:38 | Emergency (ER) | payer MEDICAID ==
[2016-11-01 17:45] VITALS: BMI 19.5
[2016-11-01 17:47] VITALS: TEMP 98.9; O2SAT 99
--- NOTE | 2016-11-01 18:12 | C.PDOC ---
History Of Present Illness 46 yr old female with PMHx of HTN and anxiety, presents to the ER with complaints of high blood pressure at home. Patient states ran out of Lisinopril 2 weeks ago. Patient denies fever, chills, chest pain, SOB, nausea, vomiting, abdominal pain, diarrhea, weakness or numbness. Pt with no chest pain, no blurred vision and no SOB. Time Seen by Provider: 11/01/16 18:01 Chief Complaint (Nursing): Dizziness/Lightheaded History Per: Patient History/Exam Limitations: no limitations Onset/Duration Of Symptoms: Days (2 weeks) Past Medical History Reviewed: Historical Data, Nursing Documentation, Vital Signs Vital Signs: Last Vital Signs Temp 98.9 F 11/01/16 17:45 Pulse 78 11/01/16 19:20 Resp 16 11/01/16 19:20 BP 159/88 H 11/01/16 19:20 Pulse Ox 99 11/01/16 18:32 - Medical History PMH: Anxiety, Bipolar Disorder, Depression, Fractures (hand and foot fx), HTN, Hypercholesterolemia - [facility] Procedures APPLICATION OF SPLINT (10/06/14) ESOPHAGOGASTRODUODENOSCOPY [EGD] W/CLOSED BIOPSY (10/09/14) GROUP PSYCHOTHERAPY (05/02/15) INDIVIDUAL PSYCHOTHERAPY, SUPPORTIVE (05/02/15) INJECT/INFUSE NEC (08/18/13) INTRODUCE REGIONAL ANESTH IN PERIPH NRV, PLEXI, PERC (06/27/15) OTHER CAST APPLICATION (02/14/14) REATTACHMENT OF LEFT SHOULDER TENDON, OPEN APPROACH (06/27/15) REMOV EXT IMMOBILIZATION (02/14/14) REPAIR LEFT KNEE JOINT, OPEN APPROACH (06/27/15) REPOSITION LEFT HUMERAL HEAD WITH INT FIX, OPEN APPROACH (06/27/15) REPOSITION LEFT TIBIA WITH INT FIX, OPEN APPROACH (06/27/15) SUPPLEMENT L SHOULDER TENDON WITH SYNTH SUB, OPEN APPROACH (06/27/15) TRANSFUSE NONAUT RED BLOOD CELLS IN PERIPH VEIN, PERC (06/27/15) Family History: States: Stroke, CAD, Hypertension - Social History Hx Tobacco Use: Yes (light smoker) Hx Alcohol Use: No Hx Substance Use: Yes - Immunization History Hx Tetanus Toxoid Vaccination: No Hx Influenza Vaccination: Yes (04/2016) Hx Pneumococcal Vaccination: Yes (2014) Review Of Systems Except As Marked, All Systems Reviewed And Found Negative. Constitutional: Negative for: Fever Cardiovascular: Negative for: Chest Pain Physical Exam - Physical Exam Additional Physical Exam Comments: Appears: Well, Non-toxic, No Acute Distress Skin: Warm, Dry, No Rash, Other (Scar on the left shoulder ) Head: Atraumatic, Normacephalic Eye(s): bilateral: Normal Inspection, EOMI Ear(s): Bilateral: Normal Nose: Normal Oral Mucosa: Moist Tongue: Normal Appearing Lips: Normal Appearing Gingiva: Normal Appearing Throat: Normal Neck: Normal, Normal ROM, Supple Chest: Symmetrical, No Tenderness Cardiovascular: Rhythm Regular, No Murmur Respiratory: Normal Breath Sounds, No Rales, No Rhonchi, No Stridor, No Wheezing Gastrointestinal/Abdominal: Normal Exam, Bowel Sounds, Soft, No Tenderness Back: Normal Inspection Extremity: Normal ROM, No Swelling Extremity: Bilateral: Atraumatic, Normal ROM Pulses: Left Radial: Normal, Right Radial: Normal Neurological/Psych: Oriented x3, Normal Speech, Normal Motor Gait: Steady ED Course And Treatment O2 Sat by Pulse Oximetry: 99 Medical Decision Making Medical Decision Making: Will give home dose Lisinopril, recheck BP. EKG 78 bpm, no ST elevations, normal axis. Sinus rhythm. Patient states she can follow up with PMD likely tomorrow for refill. Blood pressure improved, patient states she feels better. Disposition - Disposition Disposition: HOME/ ROUTINE Disposition Time: 19:26 Condition: STABLE Prescriptions: Lisinopril [Prinivil] 10 mg PO DAILY #3 tablet Instructions: Hypertension (ED) - Clinical Impression Clinical Impression: Hypertension
[2016-11-01 19:20] VITALS: BP 159/88; PULSE 78; RESP 16
--- NOTE | 2016-11-02 18:28 | CARD ---
APPROVED REPORT EKG Measurement Heart [id number] <Conclusion> Sinus rhythm with short IN Voltage criteria for left ventricular hypertrophy Nonspecific ST abnormality Abnormal ECG
== END 2016-11-01 19:39 | disposition home or self-care (01) ==
LOC: C.ER 17:38
DX: I10 Essential (primary) hypertension (principal); Z72.0 Tobacco use

== ENCOUNTER 2016-11-19 14:41 | Emergency (ER) | payer MEDICAID ==
[2016-11-19 14:47] VITALS: BMI 18.4
[2016-11-19 14:50] VITALS: RESP 18
[2016-11-19 15:00] VITALS: BP 171/95; PULSE 71; TEMP 98.3; O2SAT 98
--- NOTE | 2016-11-19 15:13 | C.PDOC ---
History Of Present Illness 46 y/o female presents to the ED with complaints of dizziness and palpitations today. Pt suspects elevated blood pressure. Pt with multiple past presentations in ED for the same. Multiple CTAs done, negative x3. Denies vomiting, SOB, or any other complaints. Time Seen by Provider: 11/19/16 15:05 Chief Complaint (Nursing): Dizziness/Lightheaded History Per: Patient History/Exam Limitations: no limitations Onset/Duration Of Symptoms: Hrs Current Symptoms Are (Timing): Still Present Fall Associated With With Symptoms: No Severity: Mild Recent travel outside of the [place]: No - Symptoms Of CVA Recent Head Trauma: No Past Medical History Reviewed: Historical Data, Nursing Documentation, Vital Signs Vital Signs: Last Vital Signs Temp 98.3 F 11/19/16 14:56 Pulse 71 11/19/16 14:56 Resp 18 11/19/16 14:56 BP 171/95 H 11/19/16 14:56 Pulse Ox 98 11/19/16 15:13 - Medical History PMH: Anxiety, Bipolar Disorder, Depression, Fractures (hand and foot fx), HTN, Hypercholesterolemia - [facility] Procedures APPLICATION OF SPLINT (10/06/14) ESOPHAGOGASTRODUODENOSCOPY [EGD] W/CLOSED BIOPSY (10/09/14) GROUP PSYCHOTHERAPY (05/02/15) INDIVIDUAL PSYCHOTHERAPY, SUPPORTIVE (05/02/15) INJECT/INFUSE NEC (08/18/13) INTRODUCE REGIONAL ANESTH IN PERIPH NRV, PLEXI, PERC (06/27/15) OTHER CAST APPLICATION (02/14/14) REATTACHMENT OF LEFT SHOULDER TENDON, OPEN APPROACH (06/27/15) REMOV EXT IMMOBILIZATION (02/14/14) REPAIR LEFT KNEE JOINT, OPEN APPROACH (06/27/15) REPOSITION LEFT HUMERAL HEAD WITH INT FIX, OPEN APPROACH (06/27/15) REPOSITION LEFT TIBIA WITH INT FIX, OPEN APPROACH (06/27/15) SUPPLEMENT L SHOULDER TENDON WITH SYNTH SUB, OPEN APPROACH (06/27/15) TRANSFUSE NONAUT RED BLOOD CELLS IN PERIPH VEIN, PERC (06/27/15) Family History: States: Stroke, CAD, Hypertension - Social History Hx Tobacco Use: Yes (light smoker) Hx Alcohol Use: No Hx Substance Use: Yes - Immunization History Hx Tetanus Toxoid Vaccination: No Hx Influenza Vaccination: Yes (04/2016) Hx Pneumococcal Vaccination: Yes (2013) Review Of Systems Except As Marked, All Systems Reviewed And Found Negative. Constitutional: Negative for: Fever Cardiovascular: Positive for: Palpitations Respiratory: Negative for: Shortness of Breath Gastrointestinal: Negative for: Vomiting Neurological: Positive for: Dizziness Physical Exam - Physical Exam Appears: Non-toxic, No Acute Distress, Other (anxious) Skin: Warm, Dry, No Rash Head: Atraumatic, Normacephalic Neck: Normal, Normal ROM, Supple Chest: Symmetrical Cardiovascular: Rhythm Regular, No Murmur Respiratory: Normal Breath Sounds, No Rales, No Rhonchi, No Wheezing Gastrointestinal/Abdominal: Normal Exam, Soft, No Tenderness Extremity: Bilateral: Atraumatic Neurological/Psych: Oriented x3, Normal Speech, Normal Cognition ED Course And Treatment O2 Sat by Pulse Oximetry: 98 (room air) Pulse Ox Interpretation: Normal Medical Decision Making Medical Decision Making: multiple presentations for same, usually neg w/u neg CTA x 3 in past, neg for PE normal BP and EKG on eval, pt defers w/u with informed consent. Suspect related to anxiety/depression Good med compliance reinforced. Disposition Doctor Will See Patient In The: Office Counseled Patient/Family Regarding: Studies Performed, Diagnosis - Disposition Referrals: [facility] [Outside] [facility] [Outside] Disposition: HOME/ ROUTINE Disposition Time: 15:12 Condition: GOOD Additional Instructions: continue your normal BP meds Follow up in our outpaient Clinic for ongoing evaluation and treatment for your anxiety/depression. Instructions: Dizziness (ED) - Clinical Impression Clinical Impression: Dizziness - Scribe Statement The provider has reviewed the documentation as recorded by the Georgina Martinez Provider Attestation: All medical record entries made by the Georgina were at my direction and personally dictated by me. I have reviewed the chart and agree that the record accurately reflects my personal performance of the history, physical exam, medical decision making, and the department course for this patient. I have also personally directed, reviewed, and agree with the discharge instructions and disposition.
--- NOTE | 2016-11-23 11:37 | CARD ---
APPROVED REPORT EKG Measurement Heart [id number] <Conclusion> Normal sinus rhythm Voltage criteria for left ventricular hypertrophy Abnormal ECG
== END 2016-11-19 16:03 | disposition home or self-care (01) ==
LOC: C.ER 14:41
DX: R42 Dizziness and giddiness (principal)

== ENCOUNTER 2016-12-19 13:07 | Emergency (ER) | payer MEDICAID ==
[2016-12-19 13:07] VITALS: BMI 18.4
[2016-12-19 13:24] VITALS: BP 172/102; PULSE 66; RESP 18; TEMP 98.2; O2SAT 100
--- NOTE | 2016-12-19 13:52 | C.PDOC ---
History Of Present Illness 46-YEAR-OLD FEMALE, COMES IN WITH COMPLAINTS OF RECURRENT CHEST PAIN, HTN AND HEADACHE ONGOING SINCE THIS MORNING. PT HAS HAD MULT ER VISITS FOR SAME COMPLAINT. SEEN ON 11/30 IN [place] FOR SAME. SIM PRIOR VISITS W SAME COMPLAINTS SINCE 06/30. SHE IS COMPLIANT W MEDS AT HOME 120/70 NORMALLY. PT HAS NOT FOLLOWED WITH PMD, DESPITE BEING TOLD TO DO SO. PMHx of HTN and anxiety Pt with multiple past presentations in ED for the same. Time Seen by Provider: 12/19/16 13:50 Chief Complaint (Nursing): High Blood Pressure History Per: Patient History/Exam Limitations: no limitations Onset/Duration Of Symptoms: Hrs Current Symptoms Are (Timing): Still Present Severity: Moderate Past Medical History Reviewed: Historical Data, Nursing Documentation, Vital Signs Vital Signs: Last Vital Signs Temp 98.2 F 12/19/16 13:34 Pulse 66 12/19/16 13:34 Resp 18 12/19/16 13:34 BP 172/102 H 12/19/16 13:34 Pulse Ox 100 12/19/16 14:14 - Medical History PMH: Anxiety, Bipolar Disorder, Depression, Fractures (hand and foot fx), HTN, Hypercholesterolemia - [facility] Procedures APPLICATION OF SPLINT (10/06/14) ESOPHAGOGASTRODUODENOSCOPY [EGD] W/CLOSED BIOPSY (10/09/14) GROUP PSYCHOTHERAPY (05/02/15) INDIVIDUAL PSYCHOTHERAPY, SUPPORTIVE (05/02/15) INJECT/INFUSE NEC (08/18/13) INTRODUCE REGIONAL ANESTH IN PERIPH NRV, PLEXI, PERC (06/27/15) OTHER CAST APPLICATION (02/14/14) REATTACHMENT OF LEFT SHOULDER TENDON, OPEN APPROACH (06/27/15) REMOV EXT IMMOBILIZATION (02/14/14) REPAIR LEFT KNEE JOINT, OPEN APPROACH (06/27/15) REPOSITION LEFT HUMERAL HEAD WITH INT FIX, OPEN APPROACH (06/27/15) REPOSITION LEFT TIBIA WITH INT FIX, OPEN APPROACH (06/27/15) SUPPLEMENT L SHOULDER TENDON WITH SYNTH SUB, OPEN APPROACH (06/27/15) TRANSFUSE NONAUT RED BLOOD CELLS IN PERIPH VEIN, PERC (06/27/15) Family History: States: Stroke, CAD, Hypertension - Social History Hx Tobacco Use: Yes (light smoker) Hx Alcohol Use: No Hx Substance Use: Yes (weed) - Immunization History Hx Tetanus Toxoid Vaccination: No Hx Influenza Vaccination: Yes (04/2016) Hx Pneumococcal Vaccination: Yes (2013) Review Of Systems Except As Marked, All Systems Reviewed And Found Negative. Constitutional: Negative for: Fever Cardiovascular: Negative for: Chest Pain Respiratory: Negative for: Shortness of Breath Gastrointestinal: Negative for: Nausea, Vomiting Musculoskeletal: Negative for: Back Pain Neurological: Positive for: Headache Physical Exam - Physical Exam Appears: Non-toxic, No Acute Distress Skin: Warm, Dry, No Rash Head: Atraumatic, Normacephalic Eye(s): bilateral: Normal Inspection, PERRL, EOMI Nose: Normal Oral Mucosa: Moist Lips: Normal Appearing Neck: Normal ROM Cardiovascular: Rhythm Regular, No Murmur Respiratory: Normal Breath Sounds, No Accessory Muscle Use Extremity: Normal ROM Neurological/Psych: Oriented x3, Normal Speech ED Course And Treatment ECG: Interpreted By Me, Viewed By Me ECG Rhythm: Sinus Bradycardia ECG Interpretation: No Acute Changes Rate From EC O2 Sat by Pulse Oximetry: 100 (on RA) Pulse Ox Interpretation: Normal Progress - Re-Evaluation Re-evaluation Note: 12/19/16 14:40 ADVISED BY RN RANJEET RICHARDSON. NO REASSESSMENT BY ME PRIOR TO ELOPEMENT - Data Reviewed Data Reviewed: Old records Disposition - Disposition Disposition: ELOPEMENT - ER ONLY Disposition Time: 14:40 Condition: UNKNOWN Forms: [facility] (Polish) - Clinical Impression Clinical Impression: Hypertension, Chest pain, Headache - Scribe Statement The provider has reviewed the documentation as recorded by the Scribe (Joanna Austin) All medical record entries made by the Scribe were at my direction and personally dictated by me. I have reviewed the chart and agree that the record accurately reflects my personal performance of the history, physical exam, medical decision making, and the department course for this patient. I have also personally directed, reviewed, and agree with the discharge instructions and disposition.
[2016-12-19] MEDS ORDERED: Nitroglycerin 2% Ointment Foilpak UD TOP STA (14:13)
[2016-12-19] MEDS ORDERED: Labetalol 25mg/5ml Syringe IVP STA (14:15)
--- NOTE | 2016-12-25 10:11 | CARD ---
APPROVED REPORT EKG Measurement Heart [id number] [place] [id number] [id number] <Conclusion> Sinus bradycardia Possible Left atrial enlargement Left ventricular hypertrophy Abnormal ECG
== END 2016-12-19 14:43 | disposition left against medical advice (07) ==
LOC: C.ER 13:07
DX: I10 Essential (primary) hypertension (principal); R07.9 Chest pain, unspecified; R51 Headache

== ENCOUNTER 2016-12-22 16:46 | Emergency (ER) | payer MEDICAID ==
[2016-12-22 16:46] VITALS: BMI 18.4
[2016-12-22 16:58] VITALS: RESP 18
[2016-12-22] MEDS ORDERED: Sodium Chloride 0.9% 1,000 ML IV ONE (17:33)
[2016-12-22] MEDS ORDERED: Sodium Chloride 0.9% 1,000 ML ONE (17:49)
[2016-12-22 17:51] LABS: HEMOGLOBIN 14.2 g/dL (11.0-16.0); MEAN CELL VOLUME 84.2 fL (81.0-99.0); MEAN CORPUSCULAR HEMOGLOBIN 29.1 pg (27.0-31.0); MEAN CORPUSCULAR HGB CONC 34.5 g/dL (33.0-37.0); MEAN PLATELET VOLUME 10.2 fL (7.2-11.7); RBC 4.89 Mil/uL (3.80-5.20); RED CELL DISTRIBUTION WIDTH 14.6 % (11.5-14.5); WHITE BLOOD COUNT 6.8 K/uL (4.8-10.8)
--- NOTE | 2016-12-22 17:54 | C.PDOC ---
History Of Present Illness 46 year old female presents to ED for evaluation of HTN associated with dizziness, nausea and vomiting. Additionally patient reports feeling anxious. She states she took all her medications this morning. [place] and [place]. She also reports loose stools this morning. Denies any abdominal pain, headache, fever. Pt with multiple past presentations in ED for the same. Time Seen by Provider: 12/22/16 17:28 Chief Complaint (Nursing): GI Problem History Per: Patient History/Exam Limitations: no limitations Onset/Duration Of Symptoms: Hrs Current Symptoms Are (Timing): Still Present Associated Symptoms: Dizziness. denies: Chest Pain Recent travel outside of the [place]: No Additional History Per: Prior Records Past Medical History Reviewed: Historical Data, Nursing Documentation, Vital Signs Vital Signs: Last Vital Signs Temp 98.2 F 12/22/16 18:19 Pulse 61 12/22/16 18:19 Resp 18 12/22/16 18:19 BP 163/99 H 12/22/16 18:19 Pulse Ox 98 12/22/16 18:50 - Medical History PMH: Anxiety, Bipolar Disorder, Depression, Fractures (hand and foot fx), HTN, Hypercholesterolemia - [facility] Procedures APPLICATION OF SPLINT (10/06/14) ESOPHAGOGASTRODUODENOSCOPY [EGD] W/CLOSED BIOPSY (10/09/14) GROUP PSYCHOTHERAPY (05/02/15) INDIVIDUAL PSYCHOTHERAPY, SUPPORTIVE (05/02/15) INJECT/INFUSE NEC (08/18/13) INTRODUCE REGIONAL ANESTH IN PERIPH NRV, PLEXI, PERC (06/27/15) OTHER CAST APPLICATION (02/14/14) REATTACHMENT OF LEFT SHOULDER TENDON, OPEN APPROACH (06/27/15) REMOV EXT IMMOBILIZATION (02/14/14) REPAIR LEFT KNEE JOINT, OPEN APPROACH (06/27/15) REPOSITION LEFT HUMERAL HEAD WITH INT FIX, OPEN APPROACH (06/27/15) REPOSITION LEFT TIBIA WITH INT FIX, OPEN APPROACH (06/27/15) SUPPLEMENT L SHOULDER TENDON WITH SYNTH SUB, OPEN APPROACH (06/27/15) TRANSFUSE NONAUT RED BLOOD CELLS IN PERIPH VEIN, PERC (06/27/15) Family History: States: Stroke, CAD, Hypertension - Social History Hx Tobacco Use: Yes (light smoker) Hx Alcohol Use: No Hx Substance Use: Yes (weed) - Immunization History Hx Tetanus Toxoid Vaccination: No Hx Influenza Vaccination: Yes (04/2016) Hx Pneumococcal Vaccination: Yes (2013) Review Of Systems Constitutional: Negative for: Fever, Chills Cardiovascular: Negative for: Chest Pain Respiratory: Negative for: Cough, Shortness of Breath Gastrointestinal: Positive for: Vomiting. Negative for: Abdominal Pain Neurological: Positive for: Dizziness. Negative for: Headache Psych: Positive for: Anxiety Physical Exam - Physical Exam Appears: Non-toxic, No Acute Distress, Other (Patient appears anxious on exam. ) Skin: Warm, Dry Head: Atraumatic Eye(s): bilateral: Normal Inspection, PERRL, EOMI Oral Mucosa: Moist Neck: Supple Chest: Symmetrical, No Deformity Cardiovascular: Rhythm Regular Respiratory: Normal Breath Sounds, No Rhonchi, No Wheezing Gastrointestinal/Abdominal: Soft, No Tenderness, No Distention, No Guarding, No Rebound Neurological/Psych: Oriented x3, Normal Speech, Normal Cognition, Normal Cranial Nerves, Normal Motor, Normal Sensation Gait: Steady ED Course And Treatment - Laboratory Results Result Diagrams: 12/22/16 17:48 12/22/16 17:48 O2 Sat by Pulse Oximetry: 98 (room air ) Progress Note: Patient was given reglan. Medical Decision Making Medical Decision Makin46 year old female with anxiety and HTN complains of elevated BP which is making her anxious. Exam was benign, anxious mood. Ordered labs and Reglan for her nausea. Labs reviewed with no acute changes, patient recently seen in Ed few days ago and has multiple ER visits for similar sx. Patient remained alert and oriented in no acute distress. BP improved. Disposition Counseled Patient/Family Regarding: Studies Performed, Diagnosis, Need For Followup - Disposition Referrals: Occupational Therapist [facility] [Outside] Disposition: HOME/ ROUTINE Disposition Time: 18:27 Condition: STABLE Additional Instructions: Vaya a chávez mdico o la clnica en 2-5 melo sin falta, para mas evaluacin. [place] yoselin medicamentos grabiel indicado. Volver a la sofia de emergencia en cualquier momento si los sntomas persisten o empeoran. Prescriptions: Ondansetron ODT [Zofran ODT] 1 odt PO BID PRN #6 odt PRN Reason: Nausea/Vomiting Instructions: Chronic Hypertension (ED), Anxiety (ED) Forms: [facility] (Slovak) Print Language: KITTITIAN - POA Present On Arrival: None - Clinical Impression Clinical Impression: Anxiety, HTN (hypertension) - Scribe Statement The provider has reviewed the documentation as recorded by the Scribe Pao Sandoval All medical record entries made by the Scribe were at my direction and personally dictated by me. I have reviewed the chart and agree that the record accurately reflects my personal performance of the history, physical exam, medical decision making, and the department course for this patient. I have also personally directed, reviewed, and agree with the discharge instructions and disposition.
[2016-12-22 18:07] LABS: ALB/GLOB RATIO 1.4 (1.0-2.1); ALBUMIN 4.5 g/dL (3.5-5.0); ALT/SGPT 27 U/L (9-52); AST/SGOT 17 U/L (14-36); BLOOD UREA NITROGEN 12 mg/dL (7-17); CALCIUM 9.3 mg/dl (8.6-10.4); GFR AFRICAN-AMERICAN > 60; GFR NON-AFRICAN AMERICAN > 60
[2016-12-22 18:19] VITALS: BP 163/99; PULSE 61; TEMP 98.2
[2016-12-22 18:28] VITALS: O2SAT 98
== END 2016-12-22 18:30 | disposition home or self-care (01) ==
LOC: C.ER 16:46
DX: I10 Essential (primary) hypertension (principal); F41.9 Anxiety disorder, unspecified; Z72.0 Tobacco use
CPT/HCPCS: 80053; 85027; 96374; 99285; J2765; J7040

== ENCOUNTER 2017-03-01 14:48 | Observation (INO) | payer MEDICAID ==
[2017-03-01 14:48] VITALS: BMI 18.4
--- NOTE | 2017-03-01 16:05 | RAD ---
HISTORY: Left sided chest pain COMPARISON: Chest x-ray performed 08/21/16 TECHNIQUE: Chest, one view. FINDINGS: LUNGS: Mild biapical pleural thickening. Hyperinflation may be seen in setting of COPD. No focal consolidation. Please note that chest x-ray has limited sensitivity for the detection of pulmonary masses. PLEURA: No significant pleural effusion identified. No definite pneumothorax . CARDIOVASCULAR: Heart size appears top normal. OSSEOUS STRUCTURES: Metallic plate and screw fixation, left proximal humerus. VISUALIZED UPPER ABDOMEN: Unremarkable. OTHER FINDINGS: None. IMPRESSION: Hyperinflation may be seen in the setting of COPD. Mild biapical pleural thickening.
[2017-03-01] MEDS ORDERED: Albuterol-Ipratrop 3 mg / 0.5 (3 ml) UD IH STA (16:36)
[2017-03-01 16:43] LABS: BASO % 0.4 % (0.0-2.0); EOS % 0.2 % (0.0-4.0); HEMATOCRIT 39.6 % (34.0-47.0); LYMPH # 2.9 K/uL (1.0-4.3); LYMPH % 30.5 % (20.0-40.0); MEAN CELL VOLUME 82.5 fL (81.0-99.0); MEAN CORPUSCULAR HEMOGLOBIN 29.3 pg (27.0-31.0); MEAN CORPUSCULAR HGB CONC 35.5 g/dL (33.0-37.0); MEAN PLATELET VOLUME 9.6 fL (7.2-11.7); MONO # 0.6 K/uL (0.0-0.8); MONO % 6.6 % (0.0-10.0); NRBC % 0.2 % (0.0-2.0); RED CELL DISTRIBUTION WIDTH 14.9 % (11.5-14.5); WHITE BLOOD COUNT 9.5 K/uL (4.8-10.8)
[2017-03-01] MEDS ORDERED: Albuterol-Ipratrop 3 mg / 0.5 (3 ml) UD ONE (16:49)
[2017-03-01 16:51] LABS: CHLORIDE 103 mmol/L (98-107); POTASSIUM 3.3 mmol/L (3.6-5.2); SODIUM 135 mmol/L (132-148)
[2017-03-01 16:53] LABS: BILIRUBIN,TOTAL 1.6 mg/dL (0.2-1.3); CARBON DIOXIDE 20 mmol/L (22-30); GFR AFRICAN-AMERICAN > 60
[2017-03-01 16:54] LABS: ALB/GLOB RATIO 1.1 (1.0-2.1); ALKALINE PHOSPHATASE 84 U/L (38-126); ALT/SGPT 40 U/L (9-52); AST/SGOT 28 U/L (14-36); BLOOD UREA NITROGEN 15 mg/dL (7-17); GLUCOSE,RANDOM 76 mg/dL (65-105); TOTAL PROTEIN 8.1 g/dL (6.3-8.3)
[2017-03-01 17:05] LABS: INR 1.1
[2017-03-01] MEDS ORDERED: Iodixanol 320 mg/ml 150 ml Bottle IV ONE (18:22)
[2017-03-01 18:34] LABS: RBC URINE 12 /hpf (0-3); URINE BACTERIA OCC (<OCC); URINE BILIRUBIN NEGATIVE (NEGATIVE); URINE BLOOD 2+ (NEGATIVE); URINE COLOR Amber (YELLOW); URINE GLUCOSE (UA) NORMAL (Normal); URINE KETONE TRACE mg/dL (NEGATIVE); URINE LEUKOCYTE ESTERASE 1+ Leu/uL (Negative); URINE PROTEIN 1+ mg/dL (NEGATIVE); WBC URINE 6 /hpf (0-5)
--- NOTE | 2017-03-01 20:37 | CT ---
EXAM: CT Chest With Intravenous Contrast CLINICAL HISTORY: 47 years old, female; Pain; Other: Chest; Chest pain; Type not specified; Additional info: Chest pain radiating to back/abdomen TECHNIQUE: Axial computed tomography images of the chest with intravenous contrast. All CT scans at this facility use one or more dose reduction techniques, viz.: automated exposure control; ma/kV adjustment per patient size (including targeted exams where dose is matched to indication; i.e. head); or iterative reconstruction technique. Coronal and sagittal reformatted images were created and reviewed. CONTRAST: 100 mL of visipaque 320 administered intravenously. COMPARISON: No relevant prior studies available. FINDINGS: Lungs: Minimal interstitial thickening is noted at the lung apices. This could be postinflammatory. Unremarkable. No mass. No consolidation. Pleural space: Unremarkable. No pneumothorax. No significant effusion. Heart: Unremarkable. No cardiomegaly. No significant pericardial effusion. Bones/joints: Unremarkable. No acute fracture. No dislocation. Soft tissues: Unremarkable. Vasculature: Unremarkable. No thoracic aortic aneurysm. Lymph nodes: Unremarkable. No enlarged lymph nodes. IMPRESSION: 1. Normal chest CT.. No pulmonary embolism. EXAM: CT Abdomen and Pelvis With Intravenous Contrast EXAM DATE/TIME: Exam ordered 03/01/2017 6:13 PM CLINICAL HISTORY: 47 years old, female; Pain; Other: Chest; Chest pain; Type not specified; Additional info: Chest pain radiating to back/abdomen TECHNIQUE: Axial computed tomography images of the abdomen and pelvis with intravenous contrast. All CT scans at this facility use one or more dose reduction techniques, viz.: automated exposure control; ma/kV adjustment per patient size (including targeted exams where dose is matched to indication; i.e. head); or iterative reconstruction technique. Coronal and sagittal reformatted images were created and reviewed. CONTRAST: 100 mL of visipaque 320 administered intravenously. COMPARISON: No relevant prior studies available. FINDINGS: Lower thorax: No acute findings. ABDOMEN: Liver: Unremarkable. No mass. Gallbladder and bile ducts: Unremarkable. No calcified stones. No ductal dilation. Pancreas: Unremarkable. No mass. No ductal dilation. Spleen: Unremarkable. No splenomegaly. Adrenals: Unremarkable. No mass. Kidneys and ureters: There are 2 left renal arteries. No hydronephrosis. Stomach and bowel: Unremarkable. No obstruction. No mucosal thickening. Appendix: No findings to suggest acute appendicitis. PELVIS: Bladder: Unremarkable. No mass. Reproductive: Unremarkable as visualized. ABDOMEN and PELVIS: Intraperitoneal space: Unremarkable. No free air. No significant fluid collection. Bones/joints: No acute fracture. No dislocation. Soft tissues: Unremarkable. Vasculature: See above. Lymph nodes: Unremarkable. No enlarged lymph nodes. IMPRESSION: 1. No acute findings.
--- NOTE | 2017-03-01 22:12 | C.PDOC ---
Time Seen by Provider: 03/01/17 15:16 Chief Complaint (Nursing): Chest Pain History Per: Patient Onset/Duration Of Symptoms: Hrs (today) Current Symptoms Are (Timing): Still Present Severity: Moderate Quality: "Pain" Associated Symptoms: Dyspnea Modifying Factors: Other Indicated Below Alleviating Factors: None Nitro Therapy Administered: 2, Per EMS, Per ED, Partial Relief Additional History Per: Prior Records Past Medical History Reviewed: Historical Data, Nursing Documentation, Vital Signs Vital Signs: Last Vital Signs Temp 98 F 03/01/17 20:04 Pulse 84 03/01/17 20:04 Resp 20 03/01/17 20:04 BP 104/67 03/01/17 20:04 Pulse Ox 99 03/01/17 20:04 - Medical History PMH: Anxiety, Bipolar Disorder, Depression, Fractures (hand and foot fx), HTN, Hypercholesterolemia - [facility] Procedures APPLICATION OF SPLINT (10/06/14) ESOPHAGOGASTRODUODENOSCOPY [EGD] W/CLOSED BIOPSY (10/09/14) GROUP PSYCHOTHERAPY (05/02/15) INDIVIDUAL PSYCHOTHERAPY, SUPPORTIVE (05/02/15) INJECT/INFUSE NEC (08/18/13) INTRODUCE REGIONAL ANESTH IN PERIPH NRV, PLEXI, PERC (06/27/15) OTHER CAST APPLICATION (02/14/14) REATTACHMENT OF LEFT SHOULDER TENDON, OPEN APPROACH (06/27/15) REMOV EXT IMMOBILIZATION (02/14/14) REPAIR LEFT KNEE JOINT, OPEN APPROACH (06/27/15) REPOSITION LEFT HUMERAL HEAD WITH INT FIX, OPEN APPROACH (06/27/15) REPOSITION LEFT TIBIA WITH INT FIX, OPEN APPROACH (06/27/15) SUPPLEMENT L SHOULDER TENDON WITH SYNTH SUB, OPEN APPROACH (06/27/15) TRANSFUSE NONAUT RED BLOOD CELLS IN PERIPH VEIN, PERC (06/27/15) Family History: States: Stroke, CAD, Hypertension - Social History Hx Tobacco Use: Yes Hx Alcohol Use: No Hx Substance Use: Yes (weed) - Immunization History Hx Tetanus Toxoid Vaccination: No Hx Influenza Vaccination: Yes (04/2016) Hx Pneumococcal Vaccination: Yes (2013) Review Of Systems Except As Marked, All Systems Reviewed And Found Negative. Constitutional: Negative for: Fever Cardiovascular: Positive for: Chest Pain Respiratory: Positive for: Shortness of Breath. Negative for: Hemoptysis Gastrointestinal: Positive for: Abdominal Pain. Negative for: Vomiting Musculoskeletal: Positive for: Back Pain Skin: Negative for: Rash Neurological: Negative for: Weakness, Numbness, Seizures Psych: Positive for: Anxiety Physical Exam - Physical Exam Appears: In Acute Distress Skin: Normal Color, Warm, Dry, No Rash Head: Atraumatic, Normacephalic Eye(s): bilateral: PERRL, EOMI Neck: Normal ROM, Supple Cardiovascular: Rhythm Regular Respiratory: Normal Breath Sounds, No Accessory Muscle Use Gastrointestinal/Abdominal: Soft, No Tenderness Back: No CVA Tenderness Extremity: Normal ROM Neurological/Psych: Oriented x3, Normal Motor, Normal Sensation ED Course And Treatment - Laboratory Results Result Diagrams: 03/01/17 16:37 03/01/17 16:37 Interpretation Of Abnormal: Positive for Cocaine Urine POC: Negative ECG: Interpreted By Me, Viewed By Me ECG Rhythm: Sinus Tachycardia, Nonspecific Changes ECG Interpretation: Abnormal Interpretation Of ECG: LVH Rate From EC O2 Sat by Pulse Oximetry: 99 Pulse Ox Interpretation: Normal - Radiology CXR: Viewed By Me, Read By Radiologist CXR Interpretation: Yes: No Acute Disease - CT Scan/US CT Dissection study Other Rad Studies (CT/US): Read By Radiologist, Radiology Report Reviewed CT/US Interpretation: IMPRESSION: 1. No acute findings. Progress - Interventions Interventions:: Observation, Oxygen - Medications Administered Oral: Aspirin (given by EMS) - Data Reviewed Data Reviewed: Lab, Diagnostic imaging, EKG, Old records - Patient Status Patient status: Partially improved - Critical Care Citical Care: Excluding Proc Time Critical Care Time: 45 minutes - Continuity of Care Discussed patient case with:: Patient, ED Nurse, On-call PMD-pt unassigned Disposition Discussed With : Aurelio Mcguire Jr. Comment: He accepted pt on his service. Pt was also signed out to the medical admitting resident. Doctor Will See Patient In The: Hospital Counseled Patient/Family Regarding: Studies Performed, Diagnosis - Disposition Disposition: HOSPITALIZED Disposition Time: 22:18 Condition: GUARDED - Clinical Impression Clinical Impression: Chest pain, Cocaine abuse
--- NOTE | 2017-03-01 23:43 | CP.PCM.HP ---
History of Present Illness - History of Present Illness History of Present Illness: CC: chest pain HPI: 47 year old female with a past medical history of HTN, anxiety, and depression. She presents to the ED complaining of persistent left sided chest pain starting early this morning at 2AM. The pain is described as pressure, rated 10/10, and radiates to the neck and left arm. The pain comes and goes in 5 minute intervals, lasting 5 minutes at a time. Associated symptoms include SOB at rest which patient states is different from her anxiety- related chest pain. Other symptoms include sweats, spots in her vision, nausea , palpitations, and numbness in the hands which is typical of her anxiety. Symptoms worse with exertion. Patient reports her BP was 195/112 at home at 4PM. She also reports she has not taken her blood pressure medication in 2 weeks. Denies recent illness, fever, vomiting. Of note upon questioning, patient admits she snorted two lines of cocaine at a [employer] yesterday. She states that this is the first time she has used cocaine since frequent usage between 2004 and 2011. Patient given sublingual nitroglycerin and Zofran in ED. At time of exam, she states her chest pain is a 9/10 and feels nauseous. PMD: ?Dr. Wilder ("not sure what his name is") PMHx: HTN, anxiety, depression, bipolar disorder(as per EMR) (states she has not seen a psychiatrist recently) SurgHx: L leg and L shoulder with metal components (2014) FamHx: mother has anxiety and HTNm ?CO SocialHx: lives alone; denies alcohol use; started using tobacco and drugs in 2004 when she "lost her kids," smokes 1 pack of cigarettes per day, 1 marijuana blunt per day, reports occasional cocaine use from 2004 to 2011 (see HPI); unemployed, states she is on social security for disability related Allergies: NKDA Home Meds: Lisinopril 10 mg PO daily; Aripripazole; Trazodone; Paroxatine (list may be incomplete) Present on Admission - Present on Admission Any Indicators Present on Admission: No Review of Systems - Constitutional Constitutional: Chills, Headache, Weakness. absent: Fever - EENT Eyes: Change in Vision, Floaters Ears: Dizziness Nose/Mouth/Throat: absent: Sore Throat - Cardiovascular Cardiovascular: Chest Pain, Chest Pain at Rest, Dyspnea, Palpitations, Radiating Pain (left arm and neck) - Respiratory Respiratory: Cough, Dyspnea, Dyspnea on Exertion - Gastrointestinal Gastrointestinal: absent: Abdominal Pain, Constipation, Diarrhea, Nausea, Vomiting - Genitourinary Genitourinary: absent: Dysuria, Hematuria, Urinary Frequency - Musculoskeletal Musculoskeletal: absent: Back Pain - Integumentary Integumentary: absent: Rash, Unusual Bruising - Neurological Neurological: Dizziness, Headaches - Psychiatric Psychiatric: absent: Anxiety, Depression - Endocrine Endocrine: Palpitations. absent: Fatigue Past Patient History - Infectious Disease Hx of Infectious Diseases: None - Past Medical History & Family History Past Medical History?: Yes - Past Social History Smoking Status: Light Smoker < 10 Cigarettes Daily - CARDIAC Hx Hypercholesterolemia: Yes Hx Hypertension: Yes - PULMONARY Hx Respiratory Disorders: (smoker) - HEENT Hx HEENT Problems: No - ENDOCRINE/METABOLIC Hx Endocrine Disorders: No - INTEGUMENTARY Hx Dermatological Problems: No - MUSCULOSKELETAL/RHEUMATOLOGICAL Hx Fractures: Yes (hand and foot fx) - GASTROINTESTINAL Hx Gastrointestinal Disorders: Yes - PSYCHIATRIC Hx Anxiety: Yes Hx Bipolar Disorder: Yes Hx Depression: Yes Hx Substance Use: Yes (weed) - SURGICAL HISTORY Hx Surgeries: Yes Hx Orthopedic Surgery: Yes (Left leg and left arm) - ANESTHESIA Hx Anesthesia: Yes Hx Anesthesia Reactions: No Hx Malignant Hyperthermia: No Meds Allergies/Adverse Reactions: Allergies Allergy/AdvReac Type Severity Reaction Status Date / Time No Known Allergies Allergy Verified 12/19/16 13:32 Physical Exam - Head Exam Head Exam: ATRAUMATIC, NORMAL INSPECTION - Eye Exam Eye Exam: EOMI, Normal appearance Pupil Exam: PERRL. absent: Miosis, Mydriatic - ENT Exam ENT Exam: Mucous Membranes Moist - Respiratory Exam Respiratory Exam: Clear to Auscultation Bilateral, NORMAL BREATHING PATTERN. absent: Rales, Rhonchi, Wheezes, Respiratory Distress - Cardiovascular Exam Cardiovascular Exam: REGULAR RHYTHM, RRR, +S1, +S2. absent: Bradycardia, Tachycardia - GI/Abdominal Exam GI & Abdominal Exam: Normal Bowel Sounds, Soft, Tenderness (LUQ). absent: Distended, Firm - Extremities Exam Extremities exam: Positive for: normal inspection, pedal pulses present. Negative for: calf tenderness, pedal edema Additional comments: well healed surgical scars noted to left lateral lower leg and anterior left shoulder - Neurological Exam Neurological exam: Alert, Oriented x3 - Psychiatric Exam Psychiatric exam: Depressed - Skin Skin Exam: Dry, Intact, Normal Color, Warm Results - Vital Signs Recent Vital Signs: Last Vital Signs Temp 98.3 F 03/01/17 22:04 Pulse 75 03/01/17 22:04 Resp 14 03/01/17 22:04 BP 105/68 03/01/17 22:04 Pulse Ox 99 03/01/17 22:19 - Labs Result Diagrams: 03/01/17 16:37 03/01/17 16:37 Labs: Laboratory Results - last 24 hr 03/01/17 03/01/17 03/01/17 16:37 16:37 16:37 WBC 9.5 RBC 4.80 Hgb 14.0 Hct 39.6 MCV 82.5 MCH 29.3 MCHC 35.5 RDW 14.9 H Plt Count 209 MPV 9.6 Neut % (Auto) 62.3 Lymph % (Auto) 30.5 [place] % (Auto) 6.6 Eos % (Auto) 0.2 Baso % (Auto) 0.4 Neut # 5.9 Lymph # 2.9 Latimer # 0.6 Eos # 0.0 Baso # 0.0 PT 12.8 H INR 1.1 APTT 28 D-Dimer, Quantitative 421 H Sodium 135 Potassium 3.3 L Chloride 103 Carbon Dioxide 20 L Anion Gap 15 BUN 15 Creatinine 0.5 L Est GFR ( Amer) > 60 Est GFR (Non-Af Amer) > 60 Random Glucose 76 Calcium 10.0 Total Bilirubin 1.6 H AST 28 ALT 40 Alkaline Phosphatase 84 Troponin I < 0.0120 NT-Pro-B Natriuret Pep 201 Total Protein 8.1 Albumin 4.3 Globulin 3.8 Albumin/Globulin Ratio 1.1 Lipase 36 Urine Color Urine Clarity Urine pH Ur Specific Fleming Urine Protein Urine Glucose (UA) Urine Ketones Urine Blood Urine Nitrate Urine Bilirubin Urine Urobilinogen Ur Leukocyte Esterase Urine WBC (Auto) Urine RBC (Auto) Ur Squamous Epith Cells Urine Bacteria Urine HCG, Qual Urine Opiates Screen Urine Methadone Screen Ur Barbiturates Screen Ur Phencyclidine Scrn Ur Amphetamines Screen U Benzodiazepines Scrn U Oth Cocaine Metabols U Cannabinoids Screen 03/01/17 03/01/17 03/01/17 17:38 18:14 18:18 WBC RBC Hgb Hct MCV MCH MCHC RDW Plt Count MPV Neut % (Auto) Lymph % (Auto) [place] % (Auto) Eos % (Auto) Baso % (Auto) Neut # Lymph # Latimer # Eos # Baso # PT INR APTT D-Dimer, Quantitative Sodium Potassium Chloride Carbon Dioxide Anion Gap BUN Creatinine Est GFR ( Amer) Est GFR (Non-Af Amer) Random Glucose Calcium Total Bilirubin AST ALT Alkaline Phosphatase Troponin I NT-Pro-B Natriuret Pep Total Protein Albumin Globulin Albumin/Globulin Ratio Lipase Urine Color Kristan Urine Clarity Hazy Urine pH 5.0 Ur Specific Fleming 1.018 Urine Protein 1+ H Urine Glucose (UA) Normal Urine Ketones Trace Urine Blood 2+ H Urine Nitrate Negative Urine Bilirubin Negative Urine Urobilinogen 2.0 H Ur Leukocyte Esterase 1+ H Urine WBC (Auto) 6 H Urine RBC (Auto) 12 H Ur Squamous Epith Cells 14 H Urine Bacteria Occ H Urine HCG, Qual Negative Urine Opiates Screen Negative Urine Methadone Screen Negative Ur Barbiturates Screen Negative Ur Phencyclidine Scrn Negative Ur Amphetamines Screen Negative U Benzodiazepines Scrn Negative U Oth Cocaine Metabols Positive U Cannabinoids Screen Positive Assessment & Plan (1) Chest pain Assessment and Plan: Likely secondary to cocaine use. EKG: nsr @ 104bpm, LVH CXR: hyperinflation in setting of COPD; mild biapical pleural thickening CT to r/o dissection: no acute findings Troponin x2: negative Troponin x1: f/u results BNP: 201 Cardiology consults: Dr. Hatfield, help appreciated Status: Acute (2) Cocaine use Assessment and Plan: Urine toxicology screen: positive for cocaine, cannabinoids Monitor vitals. Status: Acute (3) Anxiety Assessment and Plan: Continue home medications- Trazadone, Paxel, Abilify. Status: Acute (4) Depression Assessment and Plan: Continue home medications- Trazadone, Paxel, Abilify. Status: Chronic (5) Hypertension Assessment and Plan: Continue home medication- Lisinopril. Monitor vitals. Status: Chronic (6) Prophylactic measure Assessment and Plan: SCDs ACHS O2 via nasal cannula as needed. Heart Healthy Diet (2gm Na) Pepcid 20mg PO BID Activity as tolerated. Status: Acute
[2017-03-02 04:36] VITALS: RESP 20
[2017-03-02 08:35] LABS: BASO # 0.1 K/uL (0.0-0.2); BASO % 0.9 % (0.0-2.0); EOS # 0.1 K/uL (0.0-0.7); EOS % 2.2 % (0.0-4.0); HEMATOCRIT 38.7 % (34.0-47.0); LYMPH # 2.4 K/uL (1.0-4.3); LYMPH % 41.1 % (20.0-40.0); MEAN CELL VOLUME 83.9 fL (81.0-99.0); MEAN CORPUSCULAR HEMOGLOBIN 29.1 pg (27.0-31.0); MEAN CORPUSCULAR HGB CONC 34.7 g/dL (33.0-37.0); MEAN PLATELET VOLUME 10.2 fL (7.2-11.7); MONO # 0.6 K/uL (0.0-0.8); MONO % 9.4 % (0.0-10.0); NRBC % 0.2 % (0.0-2.0); WHITE BLOOD COUNT 5.9 K/uL (4.8-10.8)
[2017-03-02 08:56] LABS: CHLORIDE 102 mmol/L (98-107)
[2017-03-02 08:57] LABS: POTASSIUM 3.7 mmol/L (3.6-5.2); SODIUM 139 mmol/L (132-148)
[2017-03-02 08:59] LABS: ALB/GLOB RATIO 1.1 (1.0-2.1); ALKALINE PHOSPHATASE 61 U/L (38-126); AST/SGOT 23 U/L (14-36); BILIRUBIN,TOTAL 1.6 mg/dL (0.2-1.3); BLOOD UREA NITROGEN 17 mg/dL (7-17); CARBON DIOXIDE 25 mmol/L (22-30); GFR AFRICAN-AMERICAN > 60; GLUCOSE,RANDOM 81 mg/dL (65-105); TOTAL PROTEIN 7.4 g/dL (6.3-8.3)
[2017-03-02 09:00] LABS: ALT/SGPT 33 U/L (9-52); CALCIUM 9.1 mg/dl (8.6-10.4)
[2017-03-02] MEDS ORDERED: Enoxaparin 30 mg Syringe SC SCH (10:00)
[2017-03-02] MEDS ORDERED: Pneumococcal 23-Valent Vaccine IM ONE (10:00)
--- NOTE | 2017-03-02 11:45 | CP.PCM.DIS ---
Provider - Provider Date of Admission: 03/01/17 22:19 Attending physician: Aurelio Mcguire Jr, MD Time Spent in preparation of Discharge (in minutes): 32 Diagnosis - Discharge Diagnosis (1) Chest pain, rule out acute myocardial infarction Status: Acute (2) Cocaine use Status: Acute (3) Anxiety Status: Chronic (4) Depression Status: Chronic (5) Hypertension Status: Chronic (6) Prophylactic measure Status: Acute Hospital Course - Lab Results Lab Results: Most Recent Lab Values WBC 5.9 K/uL (4.8-10.8) 03/02/17 08:22 RBC 4.62 Mil/uL (3.80-5.20) 03/02/17 08:22 Hgb 13.4 g/dL (11.0-16.0) 03/02/17 08:22 Hct 38.7 % (34.0-47.0) 03/02/17 08:22 MCV 83.9 fL (81.0-99.0) 03/02/17 08:22 MCH 29.1 pg (27.0-31.0) 03/02/17 08:22 MCHC 34.7 g/dL (33.0-37.0) 03/02/17 08:22 RDW 15.0 % (11.5-14.5) H 03/02/17 08:22 Plt Count 196 K/uL (130-400) 03/02/17 08:22 MPV 10.2 fL (7.2-11.7) 03/02/17 08:22 Neut % (Auto) 46.4 % (50.0-75.0) L 03/02/17 08:22 Lymph % (Auto) 41.1 % (20.0-40.0) H 03/02/17 08:22 [place] % (Auto) 9.4 % (0.0-10.0) 03/02/17 08:22 Eos % (Auto) 2.2 % (0.0-4.0) 03/02/17 08:22 Baso % (Auto) 0.9 % (0.0-2.0) 03/02/17 08:22 Neut # 2.7 K/uL (1.8-7.0) 03/02/17 08:22 Lymph # 2.4 K/uL (1.0-4.3) 03/02/17 08:22 [place] # 0.6 K/uL (0.0-0.8) 03/02/17 08:22 Eos # 0.1 K/uL (0.0-0.7) 03/02/17 08:22 Baso # 0.1 K/uL (0.0-0.2) 03/02/17 08:22 PT 12.8 SECONDS (9.7-12.2) H 03/01/17 16:37 INR 1.1 03/01/17 16:37 APTT 28 SECONDS (21-34) 03/01/17 16:37 D-Dimer, Quantitative 421 ng/mlDDU (0-243) H 03/01/17 16:37 Sodium 139 mmol/L (132-148) 03/02/17 08:22 Potassium 3.7 mmol/L (3.6-5.2) 03/02/17 08:22 Chloride 102 mmol/L (98-107) 03/02/17 08:22 Carbon Dioxide 25 mmol/L (22-30) 03/02/17 08:22 Anion Gap 16 (10-20) 03/02/17 08:22 BUN 17 mg/dL (7-17) 03/02/17 08:22 Creatinine 0.7 mg/dL (0.7-1.2) 03/02/17 08:22 Est GFR ( Amer) > 60 03/02/17 08:22 Est GFR (Non-Af Amer) > 60 03/02/17 08:22 POC Glucose (mg/dL) 85 mg/dL (65-110) 03/02/17 11:08 Random Glucose 81 mg/dL (65-105) 03/02/17 08:22 Calcium 9.1 mg/dl (8.6-10.4) 03/02/17 08:22 Total Bilirubin 1.6 mg/dL (0.2-1.3) H 03/02/17 08:22 AST 23 U/L (14-36) 03/02/17 08:22 ALT 33 U/L (9-52) 03/02/17 08:22 Alkaline Phosphatase 61 U/L (38-126) 03/02/17 08:22 Troponin I < 0.0120 ng/mL (0.00-0.120) 03/02/17 08:22 NT-Pro-B Natriuret Pep 201 pg/mL (0-450) 03/01/17 16:37 Total Protein 7.4 g/dL (6.3-8.3) 03/02/17 08:22 Albumin 3.9 g/dL (3.5-5.0) 03/02/17 08:22 Globulin 3.5 gm/dL (2.2-3.9) 03/02/17 08:22 Albumin/Globulin Ratio 1.1 (1.0-2.1) 03/02/17 08:22 Lipase 36 U/L (23-300) 03/01/17 16:37 Urine Color Kristan (YELLOW) 03/01/17 18:18 Urine Clarity Hazy (Clear) 03/01/17 18:18 Urine pH 5.0 (5.0-8.0) 03/01/17 18:18 Ur Specific [place] 1.018 (1.003-1.030) 03/01/17 18:18 Urine Protein 1+ mg/dL (NEGATIVE) H 03/01/17 18:18 Urine Glucose (UA) Normal mg/dL (Normal) 03/01/17 18:18 Urine Ketones Trace mg/dL (NEGATIVE) 03/01/17 18:18 Urine Blood 2+ (NEGATIVE) H 03/01/17 18:18 Urine Nitrate Negative (NEGATIVE) 03/01/17 18:18 Urine Bilirubin Negative (NEGATIVE) 03/01/17 18:18 Urine Urobilinogen 2.0 mg/dL (0.2-1.0) H 03/01/17 18:18 Ur Leukocyte Esterase 1+ Bao/uL (Negative) H 03/01/17 18:18 Urine WBC (Auto) 6 /hpf (0-5) H 03/01/17 18:18 Urine RBC (Auto) 12 /hpf (0-3) H 03/01/17 18:18 Ur Squamous Epith Cells 14 /hpf (0-5) H 03/01/17 18:18 Urine Bacteria Occ (<OCC) H 03/01/17 18:18 Urine HCG, Qual Negative (NEGATIVE) 03/01/17 18:14 Urine Opiates Screen Negative (NEGATIVE) 03/01/17 17:38 Urine Methadone Screen Negative (NEGATIVE) 03/01/17 17:38 Ur Barbiturates Screen Negative (NEGATIVE) 03/01/17 17:38 Ur Phencyclidine Scrn Negative (NEGATIVE) 03/01/17 17:38 Ur Amphetamines Screen Negative (NEGATIVE) 03/01/17 17:38 U Benzodiazepines Scrn Negative (NEGATIVE) 03/01/17 17:38 U Oth Cocaine Metabols Positive (NEGATIVE) 03/01/17 17:38 U Cannabinoids Screen Positive (NEGATIVE) 03/01/17 17:38 - Hospital Course Hospital Course: On admission: "47 year old female with a past medical history of HTN, anxiety, and depression. She presents to the ED complaining of persistent left sided chest pain starting early this morning at 2AM. The pain is described as pressure, rated 10/10, and radiates to the neck and left arm. The pain comes and goes in 5 minute intervals, lasting 5 minutes at a time. Associated symptoms include SOB at rest which patient states is different from her anxiety-related chest pain. Other symptoms include sweats, spots in her vision, nausea, palpitations , and numbness in the hands which is typical of her anxiety. Symptoms worse with exertion. Patient reports her BP was 195/112 at home at 4PM. She also reports she has not taken her blood pressure medication in 2 weeks. Denies recent illness, fever, vomiting. Of note upon questioning, patient admits she snorted two lines of cocaine at a [employer] yesterday. She states that this is the first time she has used cocaine since frequent usage between 2004 and 2011. Patient given sublingual nitroglycerin and Zofran in ED. At time of exam, she states her chest pain is a 9/10 and feels nauseous." Hospital Course: Patient was admitted for chest pain and to rule out ACS. Chest pain attributed to cocaine use at a [employer] party prior to admission. Patient's EKG initially concerning for sinus tachycardia but repeat EKG had patient in normal sinus rhythm. Troponins were unremarkable. Patient counselled on the importance of stopping cocaine use and smoking. Patient verbalized understanding of the risks associated with her behaviors and stated that she will avoid it in the future. Patient discharged and instructed to resume her home blood pressure medication. This is a summary of the hospital course. For more information, refer to the medical records. Discharge Exam - Head Exam Head Exam: ATRAUMATIC, NORMAL INSPECTION, NORMOCEPHALIC - Eye Exam Eye Exam: EOMI, PERRL - ENT Exam ENT Exam: Mucous Membranes Moist - Respiratory Exam Respiratory Exam: Clear to PA & Lateral. absent: Rales, Rhonchi, Wheezes - Cardiovascular Exam Cardiovascular Exam: REGULAR RHYTHM, +S1, +S2 - GI/Abdominal Exam GI & Abdominal Exam: Normal Bowel Sounds, Soft. absent: Tenderness - Extremities Exam Extremities exam: pedal pulses present - Neurological Exam Neurological exam: Alert, CN II-XII Intact, Oriented x3 - Skin Skin Exam: Dry, Normal Color, Warm Discharge Plan - Follow Up Plan Condition: STABLE Disposition: HOME/ ROUTINE Instructions: Chest Pain (DC), Heart Healthy Diet (DC) Additional Instructions: Please follow up with your primary doctor within 1 week of discharge. Continue taking your blood pressure medications at home. Please stop using illegal substances as we discussed earlier and please stop smoking. If there is any new or worsening chest pain, please return to the emergency room. Referrals: Aurelio Mcguire Jr., MD [Medical Doctor] -
[2017-03-02 12:10] VITALS: BP 146/86; PULSE 63; TEMP 98.2; O2SAT 97
[2017-03-02] MEDS ORDERED: Influenza Vaccine 60 mcg/0.5 mL SYR (4YR UP) IM ONE (12:30)
--- NOTE | 2017-03-03 22:50 | CARD ---
APPROVED REPORT EKG Measurement Heart [id number] <Conclusion> Sinus tachycardia with short [place] Voltage criteria for left ventricular hypertrophy Abnormal ECG
[2017-03-04] MEDS ORDERED: Pneumococcal 23-Valent Vaccine IM ONE (10:00)
== END 2017-03-02 12:41 | disposition home or self-care (01) ==
LOC: C.ER 14:48 → C.9E 22:19 → C.6T 23:52
PROVIDERS: ADMIT Internal Medicine; ATTEND Internal Medicine
DX: R07.89 Other chest pain (principal); F31.9 Bipolar disorder, unspecified; F14.10 Cocaine abuse, uncomplicated; F41.9 Anxiety disorder, unspecified; I10 Essential (primary) hypertension; Z87.891 Personal history of nicotine dependence; J44.9 Chronic obstructive pulmonary disease, unspecified
CPT/HCPCS: 36415; 71010; 71275; 74175; 80053; 80324; 80345; 80346; 80349; 80353; 80358; 80361; 81001; 82948; 83690; 83880; 83992; 84484; 84703; 85025; 85378; 85610; 85730; 90471; 90674; 93005; 94640; 96374; 99285; G0378; J1650; J2405; Q9967

== ENCOUNTER 2017-03-04 11:49 | Emergency (ER) | payer MEDICAID ==
[2017-03-04 11:49] VITALS: BMI 18.4
[2017-03-04 12:06] VITALS: RESP 18; O2SAT 98
[2017-03-04] MEDS ORDERED: Aspirin 325 mg EC Tablets PO STA (12:36)
--- NOTE | 2017-03-04 12:36 | C.PDOC ---
History Of Present Illness 47 y/o female presents to ED with c/o feeling very anxious and some chest pain. Patient speaking in complete sentences. Denies fever, chills, nausea, vomiting, SOB, or other associated symptoms. Time Seen by Provider: 03/04/17 12:35 Chief Complaint (Nursing): Chest Pain History Per: Patient History/Exam Limitations: no limitations Onset/Duration Of Symptoms: Hrs Current Symptoms Are (Timing): Still Present Associated Symptoms: denies: Dyspnea, Diaphoresis Recent travel outside of the [place]: No Past Medical History Reviewed: Historical Data, Nursing Documentation, Vital Signs Vital Signs: Last Vital Signs Temp 98.0 F 03/04/17 12:00 Pulse 70 03/04/17 12:00 Resp 18 03/04/17 12:00 BP 128/73 03/04/17 12:00 Pulse Ox 98 03/04/17 14:28 - Medical History PMH: Anxiety, Bipolar Disorder, Depression, Fractures (hand and foot fx), HTN, Hypercholesterolemia - [facility] Procedures APPLICATION OF SPLINT (10/06/14) ESOPHAGOGASTRODUODENOSCOPY [EGD] W/CLOSED BIOPSY (10/09/14) GROUP PSYCHOTHERAPY (05/02/15) INDIVIDUAL PSYCHOTHERAPY, SUPPORTIVE (05/02/15) INJECT/INFUSE NEC (08/18/13) INTRODUCE REGIONAL ANESTH IN PERIPH NRV, PLEXI, PERC (06/27/15) OTHER CAST APPLICATION (02/14/14) REATTACHMENT OF LEFT SHOULDER TENDON, OPEN APPROACH (06/27/15) REMOV EXT IMMOBILIZATION (02/14/14) REPAIR LEFT KNEE JOINT, OPEN APPROACH (06/27/15) REPOSITION LEFT HUMERAL HEAD WITH INT FIX, OPEN APPROACH (06/27/15) REPOSITION LEFT TIBIA WITH INT FIX, OPEN APPROACH (06/27/15) SUPPLEMENT L SHOULDER TENDON WITH SYNTH SUB, OPEN APPROACH (06/27/15) TRANSFUSE NONAUT RED BLOOD CELLS IN PERIPH VEIN, PERC (06/27/15) Family History: States: Stroke, CAD, Hypertension - Social History Hx Tobacco Use: Yes Hx Alcohol Use: No Hx Substance Use: Yes (weed) - Immunization History Hx Tetanus Toxoid Vaccination: No Hx Influenza Vaccination: Yes (04/2016) Hx Pneumococcal Vaccination: Yes (2013) Review Of Systems Constitutional: Negative for: Fever, Chills Cardiovascular: Positive for: Chest Pain Respiratory: Negative for: Cough, Shortness of Breath, Wheezing Gastrointestinal: Negative for: Nausea, Vomiting Skin: Negative for: Rash Neurological: Negative for: Weakness, Numbness, Dizziness Psych: Positive for: Anxiety Physical Exam - Physical Exam Appears: Non-toxic, Other (anxious appearing) Skin: Warm, Dry, No Diaphoretic Head: Atraumatic, Normacephalic Eye(s): bilateral: Normal Inspection Oral Mucosa: Moist Neck: Normal ROM, No Midline Cervical Tenderness, No Paracervical Tenderness, Supple Chest: Symmetrical Cardiovascular: Rhythm Regular Respiratory: No Rales, No Rhonchi, No Wheezing Gastrointestinal/Abdominal: Soft, No Tenderness, No Guarding, No Rebound Back: Normal Inspection Extremity: Normal ROM Extremity: Bilateral: Atraumatic, Normal Color And Temperature Pulses: Left Dorsalis Pedis: Normal, Right Dorsalis Pedis: Normal Neurological/Psych: Oriented x3, Normal Speech, Normal Cognition Gait: Steady ED Course And Treatment - Laboratory Results Result Diagrams: 03/04/17 13:05 03/04/17 13:05 ECG: Interpreted By Me, Viewed By Me ECG Rhythm: Sinus Rhythm (72), Nonspecific Changes O2 Sat by Pulse Oximetry: 98 (RA) Pulse Ox Interpretation: Normal - Radiology CXR: Interpreted by Me, Viewed By Me CXR Interpretation: No: Infiltrates, Fracture, Pnemothorax Progress Note: EKG, CxR, bloodwork ordered. Medical Decision Making Medical Decision Making: I considered the following diagnoses: acute coronary syndrome, pulmonary embolism, lower respiratory infection, aortic dissection/aneurysm, pneumothorax , pericarditis, esophagitis/GERD, zoster and esophageal rupture but found them to be unlikely based on the history, physical exam, and diagnostics. My conclusions regarding the unlikely diagnoses were based on: the absence of significant EKG abnormalities, the lack of suggestive x-ray findings, the absence of significant abnormalities on cardiac monitoring, the absence of asymmetric pulses,. Pt feels fine and wants to go home Upon provider reevaluation patient is feeling better, is medically stable, and requires no further treatment in the ED at this time. Patient will be discharged home . Counseling was provided and all questions were answered regarding diagnosis and need for follow up with the referred clinic. There is agreement to discharge plan. Return if symptoms persist or worsen. Disposition Counseled Patient/Family Regarding: Studies Performed, Diagnosis, Need For Followup - [facility] Disposition: HOME/ ROUTINE Disposition Time: 12:35 Condition: FAIR Instructions: Anxiety (ED), Cannabis Abuse (ED) Forms: [employer] (Czech) - Clinical Impression Clinical Impression: Anxiety, Cannabis abuse - Scribe Statement The provider has reviewed the documentation as recorded by the Scribe SM All medical record entries made by the Scribe were at my direction and personally dictated by me. I have reviewed the chart and agree that the record accurately reflects my personal performance of the history, physical exam, medical decision making, and the department course for this patient. I have also personally directed, reviewed, and agree with the discharge instructions and disposition.
--- NOTE | 2017-03-04 13:05 | RAD ---
HISTORY: chest pain COMPARISON: Chest x-ray performed 03/01/17 TECHNIQUE: Chest, one view. FINDINGS: LUNGS: Hyperinflation may be seen in the setting of COPD. Biapical pleural thickening. No focal consolidation. Please note that chest x-ray has limited sensitivity for the detection of pulmonary masses. PLEURA: No significant pleural effusion identified. No definite pneumothorax . CARDIOVASCULAR: Heart size appears within normal limits. OSSEOUS STRUCTURES: Metallic plate and screw fixation of the left humerus. VISUALIZED UPPER ABDOMEN: Unremarkable. OTHER FINDINGS: None. IMPRESSION: Hyperinflation may be seen in the setting of COPD. Biapical pleural thickening.
[2017-03-04 13:13] LABS: BASO % 0.7 % (0.0-2.0); EOS # 0.1 K/uL (0.0-0.7); EOS % 2.2 % (0.0-4.0); HEMATOCRIT 37.5 % (34.0-47.0); LYMPH # 1.7 K/uL (1.0-4.3); LYMPH % 26.5 % (20.0-40.0); MEAN CORPUSCULAR HEMOGLOBIN 29.3 pg (27.0-31.0); MEAN CORPUSCULAR HGB CONC 34.4 g/dL (33.0-37.0); MEAN PLATELET VOLUME 10.4 fL (7.2-11.7); MONO # 0.5 K/uL (0.0-0.8); MONO % 7.9 % (0.0-10.0); RED CELL DISTRIBUTION WIDTH 15.2 % (11.5-14.5); WHITE BLOOD COUNT 6.3 K/uL (4.8-10.8)
[2017-03-04 13:17] LABS: CHLORIDE 102 mmol/L (98-107); POTASSIUM 4.1 mmol/L (3.6-5.2); SODIUM 137 mmol/L (132-148)
[2017-03-04 13:19] LABS: ALB/GLOB RATIO 1.1 (1.0-2.1); AST/SGOT 24 U/L (14-36); BILIRUBIN,TOTAL 0.8 mg/dL (0.2-1.3); CARBON DIOXIDE 27 mmol/L (22-30); GFR AFRICAN-AMERICAN > 60; TOTAL PROTEIN 7.6 g/dL (6.3-8.3)
[2017-03-04 13:20] LABS: ALKALINE PHOSPHATASE 66 U/L (38-126); ALT/SGPT 33 U/L (9-52); BLOOD UREA NITROGEN 11 mg/dL (7-17); CALCIUM 9.1 mg/dl (8.6-10.4); GLUCOSE,RANDOM 70 mg/dL (65-105)
[2017-03-04 13:54] LABS: RBC URINE 1 /hpf (0-3); URINE BILIRUBIN NEGATIVE (NEGATIVE); URINE BLOOD 2+ (NEGATIVE); URINE COLOR Yellow (YELLOW); URINE GLUCOSE (UA) NORMAL (Normal); URINE KETONE NEGATIVE (NEGATIVE); URINE LEUKOCYTE ESTERASE NEG Leu/uL (Negative); URINE PROTEIN NEGATIVE (NEGATIVE); URINE UROBILINOGEN NORMAL mg/dL (0.2-1.0); WBC URINE < 1 /hpf (0-5)
[2017-03-04 14:38] VITALS: BP 128/84; PULSE 68; TEMP 98.7
--- NOTE | 2017-03-07 18:32 | CARD ---
APPROVED REPORT EKG Measurement Heart [id number] <Conclusion> Sinus rhythm with short [place] Voltage criteria for left ventricular hypertrophy Abnormal ECG
== END 2017-03-04 14:44 | disposition home or self-care (01) ==
LOC: C.ER 11:49
DX: F12.10 Cannabis abuse, uncomplicated (principal)

== ENCOUNTER 2017-03-09 15:21 | Emergency (ER) | payer MEDICAID ==
[2017-03-09 15:21] VITALS: BMI 18.4
[2017-03-09 15:50] VITALS: TEMP 98.2
[2017-03-09 16:29] LABS: BASO # 0.1 K/uL (0.0-0.2); BASO % 0.6 % (0.0-2.0); EOS # 0.2 K/uL (0.0-0.7); EOS % 1.5 % (0.0-4.0); HEMATOCRIT 37.3 % (34.0-47.0); LYMPH # 3.2 K/uL (1.0-4.3); LYMPH % 32.9 % (20.0-40.0); MEAN CELL VOLUME 84.6 fL (81.0-99.0); MEAN CORPUSCULAR HEMOGLOBIN 29.2 pg (27.0-31.0); MEAN CORPUSCULAR HGB CONC 34.5 g/dL (33.0-37.0); MEAN PLATELET VOLUME 9.8 fL (7.2-11.7); MONO # 0.7 K/uL (0.0-0.8); MONO % 7.2 % (0.0-10.0); RED CELL DISTRIBUTION WIDTH 14.7 % (11.5-14.5); WHITE BLOOD COUNT 9.8 K/uL (4.8-10.8)
--- NOTE | 2017-03-09 16:32 | C.PDOC ---
History Of Present Illness 47 y/o F c history of cocaine use p/w chest pain x 1 month. Patient was here 1 week prior to same symptoms and had negative enzymes. Prior to that, also presented and kept for observation when found positive for cocaine. CTA for dissection negative during that stay. Pain is L sided chest, radiates to shoulder and down to abdomen, sharp, intermittent, not associated with exertion or rest, associated with nausea and dizziness. Denies fever, cough, dyspnea, leg swelling, recent travel, recent surgery, hormone use, previous DVT/PE. Last cocaine use 4 days ago. Time Seen by Provider: 03/09/17 15:44 Chief Complaint (Nursing): Chest Pain Past Medical History Vital Signs: Last Vital Signs Temp 98.2 F 03/09/17 15:46 Pulse 82 03/09/17 15:46 Resp 18 03/09/17 15:46 BP 170/92 H 03/09/17 15:46 Pulse Ox 99 03/09/17 16:33 - Medical History PMH: Anxiety, Bipolar Disorder, Depression, Fractures (hand and foot fx), HTN, Hypercholesterolemia - [facility] Procedures APPLICATION OF SPLINT (10/06/14) ESOPHAGOGASTRODUODENOSCOPY [EGD] W/CLOSED BIOPSY (10/09/14) GROUP PSYCHOTHERAPY (05/02/15) INDIVIDUAL PSYCHOTHERAPY, SUPPORTIVE (05/02/15) INJECT/INFUSE NEC (08/18/13) INTRODUCE REGIONAL ANESTH IN PERIPH NRV, PLEXI, PERC (06/27/15) OTHER CAST APPLICATION (02/14/14) REATTACHMENT OF LEFT SHOULDER TENDON, OPEN APPROACH (06/27/15) REMOV EXT IMMOBILIZATION (02/14/14) REPAIR LEFT KNEE JOINT, OPEN APPROACH (06/27/15) REPOSITION LEFT HUMERAL HEAD WITH INT FIX, OPEN APPROACH (06/27/15) REPOSITION LEFT TIBIA WITH INT FIX, OPEN APPROACH (06/27/15) SUPPLEMENT L SHOULDER TENDON WITH SYNTH SUB, OPEN APPROACH (06/27/15) TRANSFUSE NONAUT RED BLOOD CELLS IN PERIPH VEIN, PERC (06/27/15) Family History: States: Stroke, CAD, Hypertension - Social History Hx Tobacco Use: Yes Hx Alcohol Use: No Hx Substance Use: Yes (weed) - Immunization History Hx Tetanus Toxoid Vaccination: No Hx Influenza Vaccination: Yes (04/2016) Hx Pneumococcal Vaccination: Yes (2013) Review Of Systems Except As Marked, All Systems Reviewed And Found Negative. Constitutional: Negative for: Fever Respiratory: Negative for: Shortness of Breath ED Course And Treatment - Laboratory Results Result Diagrams: 03/09/17 16:25 03/09/17 16:25 O2 Sat by Pulse Oximetry: 99 Medical Decision Making Medical Decision Making: EKG NSR 75 bpm, no ST/T wave changes. Previous visit with elevated d dimer. Will send for CTA to rule out PE and send 1 set of enzymes. Patient has follow up visit scheduled. PROCEDURE: CT Chest with contrast (Pulmonary Angiogram) HISTORY: chest pain, r/o PE COMPARISON: Chest CT with contrast 07/11/2015. TECHNIQUE: Axial computed tomography images were obtained of the chest in the pulmonary arterial phase of enhancement. Coronal and sagittal reformatted images were created and reviewed. Intravenous contrast dose: Visipaque 320, 100 cc. Radiation dose: Total exam DLP = 166.90 mGy-cm. This CT exam was performed using one or more of the following dose reduction techniques: Automated exposure control, adjustment of the mA and/or kV according to patient size, and/or use of iterative reconstruction technique. FINDINGS: PULMONARY ARTERIES: Unremarkable. No pulmonary embolism. AORTA: No acute findings. No thoracic aortic aneurysm. LUNGS: Unremarkable. No suspicious nodule or mass. No pulmonary consolidation. A calcified granuloma is again seen at the lingula inferiorly. PLEURAL SPACES: Unremarkable. No effusion or pneuomothorax. HEART: Cardiac size appears normal in the interval. No pulmonary vascular derangement identified. LYMPH NODES: No lymphadenopathy. BONES, CHEST WALL: Unremarkable. No fracture or destructive lesion OTHER FINDINGS: Incidental stable minimal nodular thickening of the left adrenal gland again is again identified. IMPRESSION: 1. No CT evidence of pulmonary embolus at this time. 2. No infiltrate, pleural or pericardial effusion or pneumothorax. 3. Stable minimal, inferior left adrenal nodular thickening. Discharge home, couseled on drug use, f/u primary care, return to ED for worsening dyspnea, pain, or any other problem. Disposition - Disposition Disposition: HOME/ ROUTINE Disposition Time: 17:52 Condition: STABLE Instructions: Chest Pain (ED) Forms: [employer] (Wolof) - POA Core Measure Indicators: Chest Pain - Clinical Impression Clinical Impression: Chest pain
[2017-03-09 16:40] LABS: CHLORIDE 100 mmol/L (98-107); POTASSIUM 3.6 mmol/L (3.6-5.2); SODIUM 136 mmol/L (132-148)
[2017-03-09 16:42] LABS: AST/SGOT 24 U/L (14-36); BILIRUBIN,TOTAL 0.7 mg/dL (0.2-1.3); CARBON DIOXIDE 27 mmol/L (22-30); GFR AFRICAN-AMERICAN > 60
[2017-03-09 16:43] LABS: ALB/GLOB RATIO 1.1 (1.0-2.1); ALKALINE PHOSPHATASE 68 U/L (38-126); ALT/SGPT 33 U/L (9-52); BLOOD UREA NITROGEN 13 mg/dL (7-17); CALCIUM 9.1 mg/dl (8.6-10.4); GLUCOSE,RANDOM 73 mg/dL (65-105); TOTAL PROTEIN 7.9 g/dL (6.3-8.3)
[2017-03-09] MEDS ORDERED: Iodixanol 320 MG/ML 100 ML BOTTLE IV ONE (17:18)
--- NOTE | 2017-03-09 17:48 | CT ---
PROCEDURE: CT Chest with contrast (Pulmonary Angiogram) HISTORY: chest pain, r/o PE COMPARISON: Chest CT with contrast 07/11/2015. TECHNIQUE: Axial computed tomography images were obtained of the chest in the pulmonary arterial phase of enhancement. Coronal and sagittal reformatted images were created and reviewed. Intravenous contrast dose: Visipaque 320, 100 cc. Radiation dose: Total exam DLP = 166.90 mGy-cm. This CT exam was performed using one or more of the following dose reduction techniques: Automated exposure control, adjustment of the mA and/or kV according to patient size, and/or use of iterative reconstruction technique. FINDINGS: PULMONARY ARTERIES: Unremarkable. No pulmonary embolism. AORTA: No acute findings. No thoracic aortic aneurysm. LUNGS: Unremarkable. No suspicious nodule or mass. No pulmonary consolidation. A calcified granuloma is again seen at the lingula inferiorly. PLEURAL SPACES: Unremarkable. No effusion or pneuomothorax. HEART: Cardiac size appears normal in the interval. No pulmonary vascular derangement identified. LYMPH NODES: No lymphadenopathy. BONES, CHEST WALL: Unremarkable. No fracture or destructive lesion OTHER FINDINGS: Incidental stable minimal nodular thickening of the left adrenal gland again is again identified. IMPRESSION: 1. No CT evidence of pulmonary embolus at this time. 2. No infiltrate, pleural or pericardial effusion or pneumothorax. 3. Stable minimal, inferior left adrenal nodular thickening.
[2017-03-09 18:36] VITALS: BP 132/87; PULSE 81; RESP 16; O2SAT 100
--- NOTE | 2017-03-09 18:44 | RAD ---
HISTORY: chest pain COMPARISON: Chest radiograph 03/04/2017. TECHNIQUE: Chest PA and lateral FINDINGS: LUNGS: No active pulmonary disease. PLEURA: No significant pleural effusion identified. No pneumothorax apparent. CARDIOVASCULAR: Normal. OSSEOUS STRUCTURES: Prior ORIF proximal left humerus again evident. VISUALIZED UPPER ABDOMEN: Normal. OTHER FINDINGS: Inferior left pulmonary granuloma identified overlapping the left heart border densities confirmed and subsequent chest CT 03/09/2017 as well). IMPRESSION: No interval acute cardiopulmonary is identified.
--- NOTE | 2017-03-10 13:38 | CARD ---
APPROVED REPORT EKG Measurement Heart [id number] WV 106P48 [id number] <Conclusion> Sinus rhythm with short W[place] Voltage criteria for left ventricular hypertrophy Prolonged QT Abnormal ECG
== END 2017-03-09 18:35 | disposition home or self-care (01) ==
LOC: C.ER 15:21
DX: R07.9 Chest pain, unspecified (principal); I10 Essential (primary) hypertension; F17.210 Nicotine dependence, cigarettes, uncomplicated
CPT/HCPCS: 71020; 71275; 80053; 80320; 80324; 80345; 80346; 80349; 80353; 80358; 80361; 82009; 82550; 82553; 83992; 84484; 84600; 84703; 85025; 93005; 99284; Q9967

== ENCOUNTER 2017-04-24 15:47 | Emergency (ER) | payer MEDICAID ==
[2017-04-24 15:48] VITALS: BMI 18.4
[2017-04-24 15:58] VITALS: TEMP 98.1
[2017-04-24 16:55] LABS: BASO % 0.5 % (0.0-2.0); EOS % 0.4 % (0.0-4.0); HEMATOCRIT 42.8 % (34.0-47.0); LYMPH # 2.5 K/uL (1.0-4.3); LYMPH % 23.9 % (20.0-40.0); MEAN CELL VOLUME 84.4 fL (81.0-99.0); MEAN CORPUSCULAR HEMOGLOBIN 29.2 pg (27.0-31.0); MEAN CORPUSCULAR HGB CONC 34.7 g/dL (33.0-37.0); MEAN PLATELET VOLUME 10.3 fL (7.2-11.7); MONO # 0.7 K/uL (0.0-0.8); RED CELL DISTRIBUTION WIDTH 13.8 % (11.5-14.5); WHITE BLOOD COUNT 10.5 K/uL (4.8-10.8)
[2017-04-24 17:07] LABS: ALB/GLOB RATIO 1.1 (1.0-2.1); ALKALINE PHOSPHATASE 65 U/L (38-126); ALT/SGPT 35 U/L (9-52); AST/SGOT 21 U/L (14-36); BILIRUBIN,TOTAL 1.6 mg/dL (0.2-1.3); BLOOD UREA NITROGEN 11 mg/dL (7-17); CALCIUM 9.5 mg/dl (8.6-10.4); CARBON DIOXIDE 28 mmol/L (22-30); CHLORIDE 102 mmol/L (98-107); GFR AFRICAN-AMERICAN > 60; GLUCOSE,RANDOM 93 mg/dL (65-105); POTASSIUM 3.2 mmol/L (3.6-5.2); SODIUM 140 mmol/L (132-148); TOTAL PROTEIN 8.5 g/dL (6.3-8.3)
[2017-04-24] MEDS ORDERED: Potassium Chloride 20 mEq/15 ml LIQ UD PO STA (17:34)
[2017-04-24] MEDS ORDERED: Potassium Chloride 20 mEq ER Tab PO ONE (18:18)
--- NOTE | 2017-04-24 18:27 | RAD ---
PROCEDURE: CHEST RADIOGRAPH, 1 VIEW HISTORY: chest pain COMPARISON: Chest radiographs 03/09/2017. FINDINGS: LUNGS: No acute infiltrate bilaterally. PLEURA: No pneumothorax or pleural fluid seen. CARDIOVASCULAR: Normal. OSSEOUS STRUCTURES: Prior ORIF proximal left humerus again noted. VISUALIZED UPPER ABDOMEN: Normal. OTHER FINDINGS: None. IMPRESSION: No interval acute cardiopulmonary disease appreciated.
--- NOTE | 2017-04-24 18:44 | C.PDOC ---
History Of Present Illness 47 y/o female hx of anxiety presents to the ED c/o sharp chest pain, mild SOB , low abdominal pain. The patient states that she has not been taking her psychiatry medication for a week. The patient denies headaches, dizziness, nausea , vomiting, travel, and diarrhea. Chief Complaint (Nursing): Chest Pain History Per: Patient Onset/Duration Of Symptoms: Hrs Current Symptoms Are (Timing): Still Present Quality: Sharp. denies: Tightness, Pressure Associated Symptoms: denies: Nausea Recent travel outside of the [place]: No Additional History Per: Patient Past Medical History Reviewed: Historical Data, Nursing Documentation, Vital Signs Vital Signs: Last Vital Signs Temp 98.1 F 04/24/17 15:56 Pulse 97 H 04/24/17 20:34 Resp 18 04/24/17 20:34 BP 125/61 04/24/17 20:34 Pulse Ox 100 04/24/17 20:34 - Medical History PMH: Anxiety, Bipolar Disorder, Depression, Fractures (hand and foot fx), HTN, Hypercholesterolemia Surgical History: No Surg Hx - [facility] Procedures APPLICATION OF SPLINT (10/06/14) ESOPHAGOGASTRODUODENOSCOPY [EGD] W/CLOSED BIOPSY (10/09/14) GROUP PSYCHOTHERAPY (05/02/15) INDIVIDUAL PSYCHOTHERAPY, SUPPORTIVE (05/02/15) INJECT/INFUSE NEC (08/18/13) INTRODUCE REGIONAL ANESTH IN PERIPH NRV, PLEXI, PERC (06/27/15) OTHER CAST APPLICATION (02/14/14) REATTACHMENT OF LEFT SHOULDER TENDON, OPEN APPROACH (06/27/15) REMOV EXT IMMOBILIZATION (02/14/14) REPAIR LEFT KNEE JOINT, OPEN APPROACH (06/27/15) REPOSITION LEFT HUMERAL HEAD WITH INT FIX, OPEN APPROACH (06/27/15) REPOSITION LEFT TIBIA WITH INT FIX, OPEN APPROACH (06/27/15) SUPPLEMENT L SHOULDER TENDON WITH SYNTH SUB, OPEN APPROACH (06/27/15) TRANSFUSE NONAUT RED BLOOD CELLS IN PERIPH VEIN, PERC (06/27/15) Family History: States: Stroke, CAD, Hypertension - Social History Hx Tobacco Use: Yes Hx Alcohol Use: No Hx Substance Use: Yes (weed) - Immunization History Hx Tetanus Toxoid Vaccination: No Hx Influenza Vaccination: Yes (04/2016) Hx Pneumococcal Vaccination: Yes (2013) Review Of Systems Except As Marked, All Systems Reviewed And Found Negative. Constitutional: Negative for: Fever, Chills Cardiovascular: Positive for: Chest Pain (sharp ). Negative for: Palpitations Respiratory: Positive for: Shortness of Breath (mild ). Negative for: Cough Gastrointestinal: Positive for: Abdominal Pain (low ). Negative for: Nausea, Vomiting, Constipation Genitourinary: Negative for: Vaginal Bleeding Skin: Negative for: Rash Psych: Positive for: Anxiety Physical Exam - Physical Exam Appears: Non-toxic, Other (nervous ) Skin: Warm, Dry, No Diaphoretic, No Rash Head: Atraumatic, Normacephalic Eye(s): bilateral: PERRL Oral Mucosa: Moist Neck: Supple Chest: Symmetrical Cardiovascular: Rhythm Regular Respiratory: Normal Breath Sounds, No Rales, No Rhonchi, No Wheezing Gastrointestinal/Abdominal: Soft, No Tenderness, No Guarding, No Rebound Extremity: Normal ROM, Capillary Refill (2<sec.) Neurological/Psych: Oriented x3, Normal Speech, Normal Cognition, Other ( anxiety ) Gait: Steady ED Course And Treatment - Laboratory Results Result Diagrams: 04/24/17 16:51 04/24/17 16:51 ECG Rhythm: Sinus Tachycardia (137) O2 Sat by Pulse Oximetry: 99 (RA) Medical Decision Making Medical Decision Making: Blood work, IV fluids, Ativan, EKG , Potassium chloride, and Angio chest PE protocol(ct) were administered. Disposition - Disposition Referrals: Padmini Maguire, [Non-Staff] - Disposition: HOME/ ROUTINE Disposition Time: 20:10 Condition: IMPROVED Additional Instructions: Thank you for letting us take care of you today. The emergency medical care you received today was directed at your acute symptoms. If you were prescribed any medication, please fill it and take as directed. It may take several days for your symptoms to resolve. Return to the Emergency Department if your symptoms worsen, do not improve, or if you have any other problems. Please contact your doctor or call one of the physicians/clinics you have been referred to that are listed on the Patient Visit Information form that is included in your discharge packet. Bring any paperwork you were given at discharge with you along with any medications you are taking to your follow up visit. Our treatment cannot replace ongoing medical care by a primary care provider (PCP) outside of the emergency department. Thank you for allowing the [facility] team to be part of your care today. Follow up with your doctor in 3-5 days for outpatient care and further management. Instructions: Noncardiac Chest Pain (ED) - Clinical Impression Clinical Impression: Anxiety, Non-cardiac chest pain - Scribe Statement The provider has reviewed the documentation as recorded by the Liuibluba Castillo All medical record entries made by the Liuibluba were at my direction and personally dictated by me. I have reviewed the chart and agree that the record accurately reflects my personal performance of the history, physical exam, medical decision making, and the department course for this patient. I have also personally directed, reviewed, and agree with the discharge instructions and disposition.
[2017-04-24] MEDS ORDERED: Iodixanol 320 MG/ML 100 ML BOTTLE IV ONE (19:32)
--- NOTE | 2017-04-24 20:06 | CT ---
EXAM: CT Angiography Chest With Intravenous Contrast CLINICAL HISTORY: 47 years old, female; Pain; Chest pain; Type not specified; Additional info: R/O pe TECHNIQUE: Axial computed tomographic angiography images of the chest with intravenous contrast using pulmonary embolism protocol. All CT scans at this facility use one or more dose reduction techniques, viz.: automated exposure control; ma/kV adjustment per patient size (including targeted exams where dose is matched to indication; i.e. head); or iterative reconstruction technique. MIP reconstructed images were created and reviewed. Coronal and sagittal reformatted images were created and reviewed. CONTRAST: 100 mL of [id number] administered intravenously. COMPARISON: CT - ANGIO CHEST PE PROTOCOL 2015-07-11 13:53 FINDINGS: Pulmonary arteries: Unremarkable. No pulmonary embolism. Aorta: No acute findings. No thoracic aortic aneurysm. Lungs: Unremarkable. No mass. No consolidation. Pleural space: Unremarkable. No significant effusion. No pneumothorax. Heart: Unremarkable. No cardiomegaly. No significant pericardial effusion. Bones/joints: Internal fixation left proximal humerus. Large amount of streak artifact. No acute fracture. No dislocation. Soft tissues: Unremarkable. Lymph nodes: Unremarkable. No enlarged lymph nodes. IMPRESSION: 1. No acute pulmonary embolism. 2. No acute aortic abnormality. 3. No consolidation. 4. Remainder of findings as above.
[2017-04-24 20:36] VITALS: BP 125/61; PULSE 97; RESP 18
[2017-04-25 00:49] VITALS: O2SAT 99
--- NOTE | 2017-04-26 23:24 | CARD ---
APPROVED REPORT EKG Measurement Heart [id number] NE 118P81 [id number] <Conclusion> Sinus tachycardia Biatrial enlargement Left ventricular hypertrophy with repolarization abnormality Abnormal ECG
== END 2017-04-24 20:34 | disposition home or self-care (01) ==
LOC: C.ER 15:47
DX: F41.9 Anxiety disorder, unspecified (principal); R07.89 Other chest pain; E78.00 Pure hypercholesterolemia, unspecified; I10 Essential (primary) hypertension; Z87.891 Personal history of nicotine dependence
CPT/HCPCS: 71010; 71275; 80053; 82948; 84484; 85025; 85378; 93005; 96374; 99285; J2060; Q9967

== ENCOUNTER 2017-04-30 11:57 | Emergency (ER) | payer MEDICAID ==
[2017-04-30 11:57] VITALS: BMI 18.4
[2017-04-30 12:05] VITALS: TEMP 97.6; O2SAT 97
--- NOTE | 2017-04-30 13:07 | C.PDOC ---
History Of Present Illness 47 y/o female c/o anxiety, chest discomfort. Many prior evaluations for the same. Known to be noncompliant with psych meds. (+) Persistent cannabis and cocaine use. Patient seen 2 days ago in [place] by crisis evaluators and patient declined admission. Seen by this physician many times. Denies any other medical complaints. Time Seen by Provider: 04/30/17 12:56 Chief Complaint (Nursing): High Blood Pressure History Per: Patient History/Exam Limitations: no limitations Onset/Duration Of Symptoms: Persistent Current Symptoms Are (Timing): Still Present Associated Symptoms: denies: Dyspnea, Blurred Vision, Focal Weakness, Headache Exacerbating Factor(s): Pos: Recent Cocaine Use Recent travel outside of the [place]: No Past Medical History Reviewed: Historical Data, Nursing Documentation, Vital Signs Vital Signs: Last Vital Signs Temp 97.6 F 04/30/17 12:04 Pulse 78 04/30/17 12:04 Resp 19 04/30/17 12:04 BP 170/97 H 04/30/17 12:04 Pulse Ox 97 04/30/17 13:07 - Medical History PMH: Anxiety, Bipolar Disorder, Depression, Fractures (hand and foot fx), HTN, Hypercholesterolemia - [facility] Procedures APPLICATION OF SPLINT (10/06/14) ESOPHAGOGASTRODUODENOSCOPY [EGD] W/CLOSED BIOPSY (10/09/14) GROUP PSYCHOTHERAPY (05/02/15) INDIVIDUAL PSYCHOTHERAPY, SUPPORTIVE (05/02/15) INJECT/INFUSE NEC (08/18/13) INTRODUCE REGIONAL ANESTH IN PERIPH NRV, PLEXI, PERC (06/27/15) OTHER CAST APPLICATION (02/14/14) REATTACHMENT OF LEFT SHOULDER TENDON, OPEN APPROACH (06/27/15) REMOV EXT IMMOBILIZATION (02/14/14) REPAIR LEFT KNEE JOINT, OPEN APPROACH (06/27/15) REPOSITION LEFT HUMERAL HEAD WITH INT FIX, OPEN APPROACH (06/27/15) REPOSITION LEFT TIBIA WITH INT FIX, OPEN APPROACH (06/27/15) SUPPLEMENT L SHOULDER TENDON WITH SYNTH SUB, OPEN APPROACH (06/27/15) TRANSFUSE NONAUT RED BLOOD CELLS IN PERIPH VEIN, PERC (06/27/15) Family History: States: Stroke, CAD, Hypertension - Social History Hx Tobacco Use: Yes Hx Alcohol Use: No Hx Substance Use: Yes (weed) - Immunization History Hx Tetanus Toxoid Vaccination: No Hx Influenza Vaccination: Yes (04/2016) Hx Pneumococcal Vaccination: Yes (2013) Review Of Systems Except As Marked, All Systems Reviewed And Found Negative. Constitutional: Negative for: Fever, Chills Cardiovascular: Positive for: Other (chest discomfort). Negative for: Palpitations Respiratory: Negative for: Cough, Shortness of Breath Gastrointestinal: Negative for: Nausea, Vomiting Skin: Negative for: Rash Neurological: Negative for: Dizziness Psych: Positive for: Anxiety Physical Exam - Physical Exam Appears: Non-toxic, No Acute Distress, Other (mildly anxious) Skin: Normal Color, Warm, Dry Head: Atraumatic, Normacephalic Oral Mucosa: Moist Chest: Symmetrical, No Tenderness Cardiovascular: Rhythm Regular Respiratory: Normal Breath Sounds, No Accessory Muscle Use, No Rales, No Rhonchi , No Wheezing Gastrointestinal/Abdominal: Soft, No Tenderness Back: Normal Inspection Extremity: Normal ROM, Capillary Refill (< 2 sec.) Neurological/Psych: Oriented x3, Normal Speech, Normal Cognition ED Course And Treatment ECG: Interpreted By Me ECG Rhythm: Sinus Rhythm Rate From EC (bpm) O2 Sat by Pulse Oximetry: 97 (RA) Pulse Ox Interpretation: Normal Medical Decision Making Medical Decision Making: persistent non-compliance with psych meds (seen 2 days ago 04/28), persistent cocaine and cannabis abuse (cocaine + 04/28) no SI/HI appropriate psych f/u already alligned many prior cardiac w/u's neg, defer repeat at this time for LOW susp of ACS despite persistent cocaine abuse. Disposition Doctor Will See Patient In The: Office Counseled Patient/Family Regarding: Studies Performed, Diagnosis - Disposition Referrals: [facility] [Outside] [facility] [Outside] [facility] [Outside] Disposition: HOME/ ROUTINE Disposition Time: 13:06 Condition: GOOD Additional Instructions: avoid cocaine and cannabis abuse, then worsten your underlying psychiatric issues Take your Psych meds as directed Outpatient psych follow-up as previously arranged. Instructions: Anxiety (ED) Forms: [facility] (Slovak) - Clinical Impression Clinical Impression: Anxiety - Scribe Statement The provider has reviewed the documentation as recorded by the Scribe SM All medical record entries made by the Scribe were at my direction and personally dictated by me. I have reviewed the chart and agree that the record accurately reflects my personal performance of the history, physical exam, medical decision making, and the department course for this patient. I have also personally directed, reviewed, and agree with the discharge instructions and disposition.
[2017-04-30 13:20] VITALS: BP 144/82; PULSE 68; RESP 18
--- NOTE | 2017-05-04 11:33 | CARD ---
APPROVED REPORT EKG Measurement Heart [id number] [place] 108P25 [id number] <Conclusion> Sinus rhythm with short [place] Minimal voltage criteria for LVH, may be normal variant Borderline ECG
== END 2017-04-30 13:23 | disposition home or self-care (01) ==
LOC: C.ER 11:57
DX: F41.9 Anxiety disorder, unspecified (principal)

== ENCOUNTER 2017-05-19 06:22 | Emergency (ER) | payer MEDICAID ==
[2017-05-19 06:22] VITALS: BMI 18.4
[2017-05-19 06:35] VITALS: RESP 18; TEMP 98.1
[2017-05-19] MEDS ORDERED: Naproxen 550 mg Tab PO STA (07:28)
--- NOTE | 2017-05-19 07:32 | C.PDOC ---
History Of Present Illness 47-year-old female presents to the emergency department with complaints of a non -productive cough that is associated with a generalized headache, nasal congestion/ runny nose. Symptoms began overnight. Patient denies fever, chills , shortness of breath, chest pain, dizziness. No other complaints at this time. Time Seen by Provider: 05/19/17 07:06 Chief Complaint (Nursing): Cough, Cold, Congestion History Per: Patient History/Exam Limitations: no limitations Onset/Duration Of Symptoms: Days Current Symptoms Are (Timing): Still Present Associated Symptoms: Nasal Congestion Ear Symptoms: Bilateral: None Severity: Mild Past Medical History Reviewed: Historical Data, Nursing Documentation, Vital Signs Vital Signs: Last Vital Signs Temp 98.1 F 05/19/17 06:28 Pulse 77 05/19/17 07:41 Resp 18 05/19/17 07:41 BP 145/91 H 05/19/17 07:41 Pulse Ox 99 05/19/17 08:01 - Medical History PMH: Anxiety, Bipolar Disorder, Depression, Fractures (hand and foot fx), HTN, Hypercholesterolemia - [facility] Procedures APPLICATION OF SPLINT (10/06/14) ESOPHAGOGASTRODUODENOSCOPY [EGD] W/CLOSED BIOPSY (10/09/14) GROUP PSYCHOTHERAPY (05/02/15) INDIVIDUAL PSYCHOTHERAPY, SUPPORTIVE (05/02/15) INJECT/INFUSE NEC (08/18/13) INTRODUCE REGIONAL ANESTH IN PERIPH NRV, PLEXI, PERC (06/27/15) OTHER CAST APPLICATION (02/14/14) REATTACHMENT OF LEFT SHOULDER TENDON, OPEN APPROACH (06/27/15) REMOV EXT IMMOBILIZATION (02/14/14) REPAIR LEFT KNEE JOINT, OPEN APPROACH (06/27/15) REPOSITION LEFT HUMERAL HEAD WITH INT FIX, OPEN APPROACH (06/27/15) REPOSITION LEFT TIBIA WITH INT FIX, OPEN APPROACH (06/27/15) SUPPLEMENT L SHOULDER TENDON WITH SYNTH SUB, OPEN APPROACH (06/27/15) TRANSFUSE NONAUT RED BLOOD CELLS IN PERIPH VEIN, PERC (06/27/15) Family History: States: Stroke, CAD, Hypertension - Social History Hx Tobacco Use: Yes Hx Alcohol Use: No Hx Substance Use: Yes (weed) - Immunization History Hx Tetanus Toxoid Vaccination: No Hx Influenza Vaccination: Yes (04/2016) Hx Pneumococcal Vaccination: Yes (2014) Review Of Systems Except As Marked, All Systems Reviewed And Found Negative. Constitutional: Negative for: Fever, Chills ENT: Positive for: Nose Congestion Cardiovascular: Negative for: Chest Pain Respiratory: Positive for: Cough. Negative for: Shortness of Breath Gastrointestinal: Negative for: Nausea, Vomiting, Abdominal Pain, Diarrhea Genitourinary: Negative for: Dysuria, Hematuria Musculoskeletal: Negative for: Neck Pain, Back Pain Skin: Negative for: Rash Neurological: Positive for: Headache. Negative for: Dizziness Physical Exam - Physical Exam Appears: Well, Non-toxic, No Acute Distress Skin: Normal Color, Warm, Dry, No Rash Eye(s): bilateral: Normal Inspection Nose: Other (rhinorrhea) Oral Mucosa: Moist Lips: Normal Appearing Throat: Normal, No Erythema, No Exudate Cardiovascular: Rhythm Regular Respiratory: Normal Breath Sounds, No Rales, No Rhonchi, No Wheezing Gastrointestinal/Abdominal: Normal Exam, Bowel Sounds, Soft, No Tenderness Extremity: Normal ROM Neurological/Psych: Oriented x3 ED Course And Treatment O2 Sat by Pulse Oximetry: 99 (on RA) Pulse Ox Interpretation: Normal Progress Note: Patient treated with PO Naproxen, Sudafed and Tessalon. Rxs given for same. Patient instructed to rest, drink plenty of fluids, and follow up with PMD/clinic in 1-2 days. She understands she should return to ED if symptoms worsen. Reevaluation Time: 07:45 Reassessment Condition: Improved Disposition Counseled Patient/Family Regarding: Studies Performed, Diagnosis, Need For Followup, Rx Given - Disposition Referrals: [facility] [Outside] Disposition: HOME/ ROUTINE Disposition Time: 07:45 Condition: STABLE Additional Instructions: FOLLOW UP WITH YOUR DOCTOR/CLINIC IN 1-2 DAYS USE MEDICATIONS NEEDED DRINK PLENTY OF FLUIDS RETURN TO ER IF SYMPTOMS WORSEN Prescriptions: Benzonatate [Tessalon Perles] 100 mg PO BID PRN #15 sgl PRN Reason: Cough Naproxen 375 mg PO BID PRN #20 tablet PRN Reason: pain Pseudoephedrine HCl [Sudafed] 30 mg PO BID PRN #15 tablet PRN Reason: Nasal Congestion Instructions: Upper Respiratory Infection (ED), Viral Syndrome (ED) Forms: [employer] (Divehi) Print Language: YORUBA - POA Present On Arrival: None - Clinical Impression Clinical Impression: Viral upper respiratory infection - Scribe Statement The provider has reviewed the documentation as recorded by the Scribe (Joanna Austin) All medical record entries made by the Scribe were at my direction and personally dictated by me. I have reviewed the chart and agree that the record accurately reflects my personal performance of the history, physical exam, medical decision making, and the department course for this patient. I have also personally directed, reviewed, and agree with the discharge instructions and disposition.
[2017-05-19] MEDS ORDERED: Naproxen 550 mg Tab PO ONE (07:34)
[2017-05-19 07:43] VITALS: BP 145/91; PULSE 77
[2017-05-19 07:58] VITALS: O2SAT 99
== END 2017-05-19 07:41 | disposition home or self-care (01) ==
LOC: C.ER 06:22
DX: J06.9 Acute upper respiratory infection, unspecified (principal); E78.00 Pure hypercholesterolemia, unspecified; I10 Essential (primary) hypertension; Z87.891 Personal history of nicotine dependence

== ENCOUNTER 2017-05-20 15:11 | Emergency (ER) | payer MEDICAID ==
[2017-05-20 15:12] VITALS: BMI 18.4
[2017-05-20 15:43] VITALS: RESP 18
[2017-05-20] MEDS ORDERED: Lactated Ringer's 1,000 ML IV STA (16:18)
[2017-05-20] MEDS ORDERED: Lactated Ringer's 1,000 ML ONE (16:41)
--- NOTE | 2017-05-20 16:53 | C.PDOC ---
History Of Present Illness 47 year old female presents to the ED c/o dizziness for the past 5 -7 days. Patient reports she went to her PMD yesterday and the tests done all came abck normal. Patient reports she went to her psychiatrist today for evaluation. Patient denies CP, SOB, cough, fever, chills, headache, blurry vision, weakness , numbness. Time Seen by Provider: 05/20/17 16:04 Chief Complaint (Nursing): Dizziness/Lightheaded History Per: Patient History/Exam Limitations: no limitations Onset/Duration Of Symptoms: Days Current Symptoms Are (Timing): Still Present Activity At Onset Of Symptoms: Standing Associated Symptoms Preceding Syncopal Episode: No Predromal Symptoms (Sudden Onset) Fall Associated With With Symptoms: No Severity: None Recent travel outside of the [place]: No Additional History Per: Patient Past Medical History Reviewed: Historical Data, Nursing Documentation, Vital Signs Vital Signs: Last Vital Signs Temp 97.9 F 05/20/17 17:53 Pulse 71 05/20/17 17:53 Resp 18 05/20/17 17:53 BP 128/86 05/20/17 17:53 Pulse Ox 99 05/20/17 17:53 - Medical History PMH: Anxiety, Bipolar Disorder, Depression, Fractures (hand and foot fx), HTN, Hypercholesterolemia Surgical History: No Surg Hx - [facility] Procedures APPLICATION OF SPLINT (10/06/14) ESOPHAGOGASTRODUODENOSCOPY [EGD] W/CLOSED BIOPSY (10/09/14) GROUP PSYCHOTHERAPY (05/02/15) INDIVIDUAL PSYCHOTHERAPY, SUPPORTIVE (05/02/15) INJECT/INFUSE NEC (08/18/13) INTRODUCE REGIONAL ANESTH IN PERIPH NRV, PLEXI, PERC (06/27/15) OTHER CAST APPLICATION (02/14/14) REATTACHMENT OF LEFT SHOULDER TENDON, OPEN APPROACH (06/27/15) REMOV EXT IMMOBILIZATION (02/14/14) REPAIR LEFT KNEE JOINT, OPEN APPROACH (06/27/15) REPOSITION LEFT HUMERAL HEAD WITH INT FIX, OPEN APPROACH (06/27/15) REPOSITION LEFT TIBIA WITH INT FIX, OPEN APPROACH (06/27/15) SUPPLEMENT L SHOULDER TENDON WITH SYNTH SUB, OPEN APPROACH (06/27/15) TRANSFUSE NONAUT RED BLOOD CELLS IN PERIPH VEIN, PERC (06/27/15) Family History: States: Stroke, CAD, Hypertension - Social History Hx Tobacco Use: Yes Hx Alcohol Use: No Hx Substance Use: Yes (weed) - Immunization History Hx Tetanus Toxoid Vaccination: No Hx Influenza Vaccination: Yes (04/2016) Hx Pneumococcal Vaccination: Yes (2013) Review Of Systems Constitutional: Negative for: Fever, Chills Cardiovascular: Negative for: Chest Pain Respiratory: Negative for: Cough, Shortness of Breath Gastrointestinal: Negative for: Nausea, Vomiting, Abdominal Pain Skin: Negative for: Rash Neurological: Positive for: Dizziness. Negative for: Weakness, Numbness, Headache Physical Exam - Physical Exam Appears: Non-toxic, No Acute Distress Skin: Normal Color, Warm, Dry Head: Atraumatic, Normacephalic Nose: No Discharge Oral Mucosa: Moist Neck: Normal ROM, Supple Chest: Symmetrical Cardiovascular: Rhythm Regular, No Murmur Respiratory: Normal Breath Sounds, No Rales, No Rhonchi, No Wheezing Gastrointestinal/Abdominal: Soft, No Tenderness Extremity: Normal ROM, No Pedal Edema, No Calf Tenderness, No Deformity, No Swelling Neurological/Psych: Oriented x3, Normal Speech, Normal Cognition Gait: Steady ED Course And Treatment - Laboratory Results Result Diagrams: 05/20/17 16:36 05/20/17 16:36 ECG: Interpreted By Me, Viewed By Me ECG Rhythm: Sinus Rhythm Interpretation Of ECG: Sinus at 90 BPM normal axis, LVH, left atrial enlargement Rate From EC O2 Sat by Pulse Oximetry: 98 (On RA) Pulse Ox Interpretation: Normal - CT Scan/US CT head Other Rad Studies (CT/US): Read By Radiologist, Radiology Report Reviewed CT/US Interpretation: FINDINGS: HEMORRHAGE: No intracranial hemorrhage. BRAIN : No mass effect or edema. No atrophy or chronic microvascular ischemic changes. VENTRICLES: Unremarkable. No hydrocephalus. CALVARIUM: Unremarkable. PARANASAL SINUSES: Mild ethmoidal sinus inflammatory changes. MASTOID AIR CELLS: Unremarkable as visualized. No inflammatory changes. OTHER FINDINGS: Metallic like density extrinsic to the right calvarium correlate clinically. Calvarium is intact. IMPRESSION: No intracranial hemorrhage or mass effect. Mild ethmoidal sinus inflammatory changes Medical Decision Making Medical Decision Making: Impression : dizziness Plan: * CT head * EKG * Blood work * Antivert 25 mg PO * Reglan 10 mg IVP Disposition - Disposition Referrals: [facility], [Non-Staff] - Disposition: HOME/ ROUTINE Disposition Time: 17:20 Condition: IMPROVED Additional Instructions: Thank you for letting us take care of you today. The emergency medical care you received today was directed at your acute symptoms. If you were prescribed any medication, please fill it and take as directed. It may take several days for your symptoms to resolve. Return to the Emergency Department if your symptoms worsen, do not improve, or if you have any other problems. Please contact your doctor or call one of the physicians/clinics you have been referred to that are listed on the Patient Visit Information form that is included in your discharge packet. Bring any paperwork you were given at discharge with you along with any medications you are taking to your follow up visit. Our treatment cannot replace ongoing medical care by a primary care provider (PCP) outside of the emergency department. Thank you for allowing the [facility] team to be part of your care today. Stay hydrated throughout the day. Follow up with your doctor in 2-3 days for outpatient management and further evaluation. Prescriptions: Meclizine [Meclizine*] 25 mg PO Q6 PRN #20 tab PRN Reason: Dizziness Instructions: Dizziness (ED) Forms: [facility] (Iranian) - Clinical Impression Clinical Impression: Dizziness - Scribe Statement The provider has reviewed the documentation as recorded by the Scribe Obed Diaz All medical record entries made by the Scribe were at my direction and personally dictated by me. I have reviewed the chart and agree that the record accurately reflects my personal performance of the history, physical exam, medical decision making, and the department course for this patient. I have also personally directed, reviewed, and agree with the discharge instructions and disposition.
[2017-05-20 16:56] LABS: BASO % 0.5 % (0.0-2.0); EOS # 0.1 K/uL (0.0-0.7); EOS % 1.7 % (0.0-4.0); HEMATOCRIT 38.2 % (34.0-47.0); LYMPH # 1.6 K/uL (1.0-4.3); LYMPH % 27.1 % (20.0-40.0); MEAN CELL VOLUME 85.1 fL (81.0-99.0); MEAN CORPUSCULAR HEMOGLOBIN 29.8 pg (27.0-31.0); MEAN PLATELET VOLUME 10.3 fL (7.2-11.7); MONO # 0.6 K/uL (0.0-0.8); MONO % 10.8 % (0.0-10.0); RED CELL DISTRIBUTION WIDTH 13.5 % (11.5-14.5)
[2017-05-20 17:08] LABS: ALB/GLOB RATIO 1.2 (1.0-2.1); ALKALINE PHOSPHATASE 69 U/L (38-126); ALT/SGPT 19 U/L (9-52); AST/SGOT 23 U/L (14-36); BILIRUBIN,TOTAL 1.3 mg/dL (0.2-1.3); BLOOD UREA NITROGEN 10 mg/dL (7-17); CALCIUM 8.4 mg/dl (8.6-10.4); CARBON DIOXIDE 29 mmol/L (22-30); CHLORIDE 100 mmol/L (98-107); GFR AFRICAN-AMERICAN > 60; GLUCOSE,RANDOM 91 mg/dL (65-105); POTASSIUM 3.8 mmol/L (3.6-5.2); SODIUM 134 mmol/L (132-148); TOTAL PROTEIN 7.7 g/dL (6.3-8.3)
--- NOTE | 2017-05-20 17:12 | CT ---
PROCEDURE: CT HEAD WITHOUT CONTRAST. HISTORY: r/o ICH COMPARISON: None available. TECHNIQUE: Axial computed tomography images were obtained through the head/brain without intravenous contrast. Radiation dose: Total exam DLP = 666 mGy-cm. This CT exam was performed using one or more of the following dose reduction techniques: Automated exposure control, adjustment of the mA and/or kV according to patient size, and/or use of iterative reconstruction technique. FINDINGS: HEMORRHAGE: No intracranial hemorrhage. BRAIN: No mass effect or edema. No atrophy or chronic microvascular ischemic changes. VENTRICLES: Unremarkable. No hydrocephalus. CALVARIUM: Unremarkable. PARANASAL SINUSES: Mild ethmoidal sinus inflammatory changes MASTOID AIR CELLS: Unremarkable as visualized. No inflammatory changes. OTHER FINDINGS: Metallic like density extrinsic to the right calvarium correlate clinically. Calvarium is intact IMPRESSION: No intracranial hemorrhage or mass effect. Mild ethmoidal sinus inflammatory changes
[2017-05-20 17:54] VITALS: BP 128/86; PULSE 71; TEMP 97.9
[2017-05-20 18:49] VITALS: O2SAT 98
== END 2017-05-20 18:13 | disposition home or self-care (01) ==
LOC: C.ER 15:11
DX: R42 Dizziness and giddiness (principal); I10 Essential (primary) hypertension; E78.00 Pure hypercholesterolemia, unspecified; Z87.891 Personal history of nicotine dependence
CPT/HCPCS: 70450; 80053; 84484; 85025; 96374; 99285; J2765; J7120